=== PATIENT | female | born 1940 | race Caucasian/White ===

== ENCOUNTER → 2016-12-29 | Outpatient (CLI) | payer MEDICARE, BC ==
--- NOTE | 2016-12-29 09:40 | MM ---
Reason for exam: screening (asymptomatic). Last mammogram was performed 1 year ago. History: Patient is postmenopausal. Took estrogen for 9 years beginning at age 50. Physical Findings: A clinical breast exam by your physician is recommended on an annual basis and results should be correlated with mammographic findings. MG 3D Screening Mammo W/Cad Bilateral CC and MLO view(s) were taken. Prior study comparison: December 29, 2015, bilateral MG 3d screening mammo w/cad. December 17, 2014, bilateral MG screening mammo w CAD. There are scattered fibroglandular densities. Stable benign calcifications. There is no discrete abnormality. No significant changes when compared with prior studies. ASSESSMENT: Benign, BI-RAD 2 RECOMMENDATION: Routine screening mammogram of both breasts in 1 year.
== END | disposition home or self-care (01) ==
LOC: RADMAMWWP 07:48
PROVIDERS: ATTEND Family Medicine
DX: Z12.31 Encounter for screening mammogram for malignant neoplasm of breast (principal)
CPT/HCPCS: 77063; G0202

== ENCOUNTER 2017-04-02 21:12 | Emergency (ER) | payer MEDICARE, BC ==
[2017-04-02] MEDS ORDERED: ORPHENADRINE 30 MG/ML 2 ML VIAL IVP STA (21:41)
[2017-04-02] MEDS ORDERED: ONDANSETRON 4 MG/2 ML VIAL IVP STA (21:41)
[2017-04-02] MEDS ORDERED: MORPHINE SULFATE 2 MG/ML SYRINGE IVP ONE (21:41)
[2017-04-02 22:19] LABS: Basophils # (A) 0.1 k/uL (0-0.2); Basophils % (A) 1 %; CH 31.1; CHCM 34.9; Eosinophils % (A) 0 %; Luc % (Auto) 2; Lymphocytes # (A) 1.7 k/uL (1.0-4.8); Lymphocytes % (A) 15 %; MCH 30.6 pg (25.0-35.0); MCHC 34.2 g/dL (31.0-37.0); MCV 89.6 fL (80.0-100.0); Mean Platelet Volume 7.2; Monocytes # (A) 0.6 k/uL (0-1.0); Monocytes % (A) 5 %; Neutrophils # (A) 8.8 k/uL (1.3-7.7); Neutrophils % (A) 77 %; RBC 4.91 m/uL (3.80-5.40); RDW 14.3 % (11.5-15.5); WBC 11.4 k/uL (3.8-10.6); WBC (Perox) 11.21
[2017-04-02 22:28] LABS: Anion Gap 12 mmol/L; Blood Urea Nitrogen 18 mg/dL (7-17); Calcium 9.5 mg/dL (8.4-10.2); Carbon Dioxide 21 mmol/L (22-30); Chloride 106 mmol/L (98-107); Glucose 141 mg/dL (74-99); Non-African American GFR(MDRD) >60 (>60 ml/min/1.73 sqM); Potassium 3.5 mmol/L (3.5-5.1); Sodium 139 mmol/L (137-145)
[2017-04-02] MEDS ORDERED: HYDROmorphone 1 MG/ML 1 ML SYRINGE IVP STA (22:47)
[2017-04-02] MEDS ORDERED: DIAZEPAM 5 MG/ML 2 ML SYRINGE IVP STA (22:47)
--- NOTE | 2017-04-02 22:50 | CT ---
EXAM: CT Head Without Intravenous Contrast CLINICAL HISTORY: Reason: pain TECHNIQUE: Axial computed tomography images of the head/brain without intravenous contrast. DLP is mGy-cm. This CT exam was performed using one or more of the following dose reduction techniques: automated exposure control, adjustment of the mA and/or kV according to patient size, and/or use of iterative reconstruction technique. COMPARISON: No relevant prior studies available. FINDINGS: Brain: Periventricular white matter hypodensities, likely on the basis of chronic small vessel ischemic changes. No hemorrhage. Ventricles: Unremarkable. No ventriculomegaly. Bones/joints: Unremarkable. No acute fracture. Soft tissues: Unremarkable. Sinuses: Unremarkable as visualized. No acute sinusitis. Mastoid air cells: Unremarkable as visualized. No mastoid effusion. Other findings: Mild age-appropriate atrophy. IMPRESSION: No acute findings. Chronic small vessel ischemic changes and age- appropriate atrophy noted. EXAM: CT Cervical Spine Without Intravenous Contrast CLINICAL HISTORY: Reason: pain TECHNIQUE: Axial computed tomography images of the cervical spine without intravenous contrast. DLP is mGy-cm. This CT exam was performed using one or more of the following dose reduction techniques: automated exposure control, adjustment of the mA and/or kV according to patient size, and/or use of iterative reconstruction technique. COMPARISON: No relevant prior studies available. FINDINGS: Vertebrae: Unremarkable. No acute fracture. Discs/spinal canal/neural foramina: Degenerative disc height loss with anterior and posterior disc spur complex disease seen at C4-5 and C6-7. There is a 3 mm anterior subluxation of C5 on 6 caused by significant disc degeneration at this level. Facet arthrosis is also seen bilaterally from C4-C7. No spinal canal stenosis. Soft tissues: Unremarkable. Lung apices: Unremarkable as visualized. IMPRESSION: 1. No evidence of fracture. 2. Multilevel spondylotic changes as above including grade 1 anterior subluxation of C5 on C6.
--- NOTE | 2017-04-02 23:00 | ED ---
Neck Injury/Pain HPI - General Chief Complaint: Neck Pain/Injury Stated Complaint: Neck/Back Pain Time Seen by Provider: 04/02/17 21:34 Source: patient, RN notes reviewed Mode of arrival: ambulatory Limitations: no limitations - History of Present Illness Initial Comments: This is a 76-year-old female presents emergency Department chief complaint neck pain last few days. Patient states it started after doing some dishes. She states that she has pain that radiates on the sides of her neck into her shoulders. She states the pain is tremendously worse with movement. She denies any trauma or any falls. Denies any numbness or tingling or weakness of her upper extremities states that she does have pain when she lifts her arms above her shoulder height towards her neck and shoulder region. She denies any headache or dizziness denies any blurred vision or focal weakness. She states that she took her 's [place] with no relief. Patient states that she has not been moving her neck in all states that does not seem to be helping. She states she just feels very stiff. She denies any chest pain or shortness of breath. She states she has no upper back or lower back pain. Patient denies any prior history of any neck issues. - Related Data Previous Rx's Medication Instructions Recorded Diazepam [Valium] 5 mg PO QID #20 tab 04/02/17 HYDROcodone/APAP 7.5-325MG [[place] 1 tab PO Q6HR PRN #20 tab 04/02/17 7.5-325] Allergies Allergy/AdvReac Type Severity Reaction Status Date / Time Penicillins Allergy Rash/Hives Verified 04/02/17 21:19 Review of Systems ROS Statement: Those systems with pertinent positive or pertinent negative responses have been documented in the HPI. ROS Other: All systems not noted in ROS Statement are negative. Past Medical History Past Medical History: GERD/Reflux, Hyperlipidemia, Hypertension Additional Past Medical History / Comment(s): diverticulitis History of Any Multi-Drug Resistant Organisms: None Reported Past Surgical History: Adenoidectomy, Hysterectomy, Tonsillectomy Past Psychological History: No Psychological Hx Reported Smoking Status: Former smoker Past Alcohol Use History: None Reported Past Drug Use History: None Reported General Exam Limitations: no limitations General appearance: alert, in no apparent distress Head exam: Present: atraumatic, normocephalic, normal inspection Eye exam: Present: normal appearance, PERRL, EOMI. Absent: scleral icterus, conjunctival injection, periorbital swelling ENT exam: Present: normal exam, normal oropharynx, mucous membranes moist Neck exam: Present: normal inspection, tenderness (Diffuse paraspinal tenderness , no vertebral tenderness). Absent: meningismus, full ROM (Decreased range of motion secondary to pain), lymphadenopathy Respiratory exam: Present: normal lung sounds bilaterally. Absent: respiratory distress, wheezes, rales, rhonchi, stridor, decreased breath sounds Cardiovascular Exam: Present: regular rate, normal rhythm, normal heart sounds. Absent: systolic murmur, diastolic murmur, rubs, gallop, clicks Extremities exam: Present: normal inspection, full ROM, normal capillary refill , other (Upper extremity strength equal bilaterally 5/5, neurovascular intact there are no rashes noted patient does complain of some pain noted trapezius region when she moves her shoulders above 90). Absent: tenderness, pedal edema , joint swelling, calf tenderness Back exam: Present: normal inspection, full ROM. Absent: tenderness Neurological exam: Present: alert, oriented X3, CN II-XII intact, reflexes normal. Absent: motor sensory deficit Skin exam: Present: warm, dry, intact, normal color. Absent: rash Course Vital Signs 04/02/17 04/02/17 21:16 23:26 Temperature 98.5 F Pulse Rate 99 85 Respiratory 20 12 Rate Blood Pressure 137/79 119/62 O2 Sat by Pulse 94 L 94 L Oximetry Medical Decision Making - Medical Decision Making 76-year-old female presents emergency department for neck pain. Patient has degenerative changes and grade 1 subluxation of the cervical spine secondary to degenerative changes no acute trauma. Patient does feel slightly improved after medications. Patient will be discharged with Valium and [place] and to follow-up with Dr. Curran orthopedic next specialist. Patient does agree to this plan. Patient has no neurological deficits or weakness of her upper extremities or lower extremities's. - Lab Data Result diagrams: 04/02/17 22:10 04/02/17 22:10 Lab Results 04/02/17 04/02/17 Range/Units 22:10 22:10 WBC 11.4 H (3.8-10.6) k/uL RBC 4.91 (3.80-5.40) m/uL Hgb 15.0 (11.4-16.0) gm/dL Hct 44.0 (34.0-46.0) % MCV 89.6 (80.0-100.0) fL MCH 30.6 (25.0-35.0) pg MCHC 34.2 (31.0-37.0) g/dL RDW 14.3 (11.5-15.5) % Plt Count 247 (150-450) k/uL Neutrophils % 77 % Lymphocytes % 15 % Monocytes % 5 % Eosinophils % 0 % Basophils % 1 % Neutrophils # 8.8 H (1.3-7.7) k/uL Lymphocytes # 1.7 (1.0-4.8) k/uL Monocytes # 0.6 (0-1.0) k/uL Eosinophils # 0.0 (0-0.7) k/uL Basophils # 0.1 (0-0.2) k/uL Sodium 139 (137-145) mmol/L Potassium 3.5 (3.5-5.1) mmol/L Chloride 106 (98-107) mmol/L Carbon Dioxide 21 L (22-30) mmol/L Anion Gap 12 mmol/L BUN 18 H (7-17) mg/dL Creatinine 0.70 (0.52-1.04) mg/dL Est GFR (MDRD) Af Amer >60 (>60 ml/min/1.73 sqM) Est GFR (MDRD) Non-Af >60 (>60 ml/min/1.73 sqM) Glucose 141 H (74-99) mg/dL Calcium 9.5 (8.4-10.2) mg/dL Disposition Clinical Impression: Cervical spine degeneration, Cervical pain Disposition: HOME SELF-CARE Condition: Stable Instructions: Degenerative Disc Disease (ED) Additional Instructions: Please return to the Emergency Department if symptoms worsen or any other concerns. Prescriptions: Diazepam [Valium] 5 mg PO QID #20 tab HYDROcodone/APAP 7.5-325MG [[place] 7.5-325] 1 tab PO Q6HR PRN #20 tab PRN Reason: Pain Referrals: Elena James MD [Primary Care Provider] - 1-2 days Quin Hall DO [Doctor of Osteopathic Medicine] - 1-2 days Time of Disposition: 23:31
[2017-04-02 23:28] VITALS: PULSE 85
[2017-04-03 00:09] VITALS: BP 132/73; RESP 16; TEMP 98
== END 2017-04-03 00:08 | disposition home or self-care (01) ==
LOC: EC 21:12
DX: M50.322 Other cervical disc degeneration at C5-C6 level (principal); Z87.891 Personal history of nicotine dependence; Z88.0 Allergy status to penicillin
CPT/HCPCS: 36415; 80048; 85025; 72125; 70450; 99284; 96374; 96375 ×4; J2360; J3360; J2405; J2270; J1170

== ENCOUNTER → 2018-04-20 | Outpatient (CLI) | payer MEDICARE ==
--- NOTE | 2018-04-20 18:11 | BD ---
EXAMINATION TYPE: Axial Bone Density DATE OF EXAM: 04/20/2018 CLINICAL HISTORY: 77-year-old female screening for osteoporosis Height: 58.5 inches Weight: 146 FRAX RISK QUESTIONS: Alcohol (3 or more units per day): no Family History (Parent hip fracture): no Glucocorticoids (More than 3mos): no (Ex: prednisone, prednisolone, methylprednisolone, dexamethasone, and hydrocortisone). History of Fracture in Adulthood: no Secondary Osteoporosis: 1. Type 1 Diabetes: no 2. Hyperthyroidism: no 3. Menopause before 45: hysterectomy age 43, menopause age 44 4. Malnutrition: no 5. Chronic liver disease: no Rheumatoid Arthritis: yes Current Tobacco Use: no RISK FACTORS HISTORY OF: History of Wrist Fracture: yes When: as a child Family History of Osteoporosis: unsure Active: yes Diet low in dairy products/other sources of calcium:somewhat? servings several times a week, perhaps not every day Postmenopausal woman: yes Take estrogen and/or progesterone medications: not now How long: age [age] Lost more than 2 inches in height since high school: unsure Frequent falls: no Poor Health: no Hyperparathyroidism: no Adrenal Insufficiency: no MEDICATIONS: Prednisone or other steroids: no Thyroid Medications: no Osteoporosis Medications:no Additional Medications: cholesterol meds ; blood pressure meds Additional History: broke wrist as young child; then ankle age 15 EXAM MEASUREMENTS: Bone mineral densitometry was performed using the [employer] System. Bone mineral density as measured about the Lumbar spine is: ----- L1-L4(G/cm2): 1.214 T Score Values are as follows: ----- L2: 0.1 ----- L3: 1.3 ----- L4: 1.2 ----- L1-L4: 0.3 Bone mineral density has: Increased 3.5% since study of: 12/29/2015 Bone mineral density about the R hip (g/cm2): 0.854 Bone mineral density about the L hip (g/cm2): 0.855 T Score values are as follows: -----R Neck: -1.3 -----L Neck: -1.3 -----R Total: -0.6 -----L Total: -0.4 Bone mineral density has: Decreased -2.5% since study of: 12/29/2015 IMPRESSION: Osteopenia (T Score between -2.5 and -1). There is slightly increased risk of fracture and the patient may be considered for treatment. Re-Screen 2-5 years. NOTE: T-SCORE=SD OF THE YOUNG ADULT MEAN.
--- NOTE | 2018-04-24 09:50 | MM ---
Reason for exam: screening (asymptomatic). Last mammogram was performed 1 year and 4 months ago. History: Patient is postmenopausal. Took estrogen for 9 years beginning at age 50. Physical Findings: A clinical breast exam by your physician is recommended on an annual basis and results should be correlated with mammographic findings. MG 3D Screening Mammo W/Cad Bilateral CC and MLO view(s) were taken. Prior study comparison: December 29, 2016, bilateral MG 3d screening mammo w/cad. December 29, 2015, bilateral MG 3d screening mammo w/cad. There are scattered fibroglandular densities. No significant changes when compared with prior studies. ASSESSMENT: Benign, BI-RAD 2 RECOMMENDATION: Routine screening mammogram of both breasts in 1 year.
== END | disposition home or self-care (01) ==
LOC: RADMAMWWP 10:59
PROVIDERS: ATTEND Family Medicine
DX: Z12.31 Encounter for screening mammogram for malignant neoplasm of breast (principal); M85.80 Other specified disorders of bone density and structure, unspecified site
CPT/HCPCS: 77063; 77067; 77080

== ENCOUNTER 2018-07-23 01:55 | Emergency (ER) | payer MEDICARE ==
[2018-07-23] MEDS ORDERED: MORPHINE SULFATE 4 MG/ML SYRINGE IVP STA ×2 (02:38→04:22)
[2018-07-23] MEDS ORDERED: ONDANSETRON 4 MG/2 ML VIAL IVP STA (02:38)
--- NOTE | 2018-07-23 02:55 | ED ---
Extremity Problem HPI - General Source: patient, RN notes reviewed Mode of arrival: ambulatory Limitations: no limitations <Abdirashid Diamond - Last Filed: 07/23/18 04:29> <Audra Ceron - Last Filed: 07/27/18 00:04> - General Chief complaint: Extremity Problem,Nontraumatic Stated complaint: Hand pain Time Seen by Provider: 07/23/18 02:17 - History of Present Illness Initial comments: 77-year-old female presents emergency Department chief complaint of left wrist pain. Patient states that she had no trauma but states that she woke up severe pain. Patient is swollen. She has pain with any movement at this time. Denies any redness. She does have a history of rheumatoid arthritis. Patient states his symptoms worsened usual. She states she did take [place] prior arrival with minimal relief. Patient reports that there is some numbness and tingling associated with it. Patient denies any discoloration though she states that there appears to be swollen vessel on her left wrist region. (Abdirashid Diamond) - Related Data Previous Rx's Medication Instructions Recorded Diazepam [Valium] 5 mg PO QID #20 tab 04/02/17 HYDROcodone/APAP 7.5-325MG [[place] 1 tab PO Q6HR PRN #20 tab 04/02/17 7.5-325] HYDROcodone/APAP 7.5-325MG [[place] 1 tab PO Q6HR PRN 3 Days #12 tab 07/23/18 7.5-325] Ibuprofen [Motrin] 600 mg PO Q8HR PRN #30 tab 07/23/18 Allergies Allergy/AdvReac Type Severity Reaction Status Date / Time Penicillins Allergy Rash/Hives Verified 07/23/18 02:04 Review of Systems ROS Other: All systems not noted in ROS Statement are negative. <Abdirashid Diamond - Last Filed: 07/23/18 04:29> ROS Other: All systems not noted in ROS Statement are negative. <Audra Ceron - Last Filed: 07/27/18 00:04> ROS Statement: Those systems with pertinent positive or pertinent negative responses have been documented in the HPI. Past Medical History Past Medical History: GERD/Reflux, Hyperlipidemia, Hypertension Additional Past Medical History / Comment(s): diverticulitis History of Any Multi-Drug Resistant Organisms: None Reported Past Surgical History: Adenoidectomy, Hysterectomy, Tonsillectomy Past Psychological History: No Psychological Hx Reported Smoking Status: Former smoker Past Alcohol Use History: None Reported Past Drug Use History: None Reported <Abdirashid Diamond - Last Filed: 07/23/18 04:29> General Exam Limitations: no limitations General appearance: alert, in no apparent distress Head exam: Present: atraumatic, normocephalic, normal inspection Neck exam: Present: normal inspection, full ROM. Absent: tenderness, meningismus, lymphadenopathy Respiratory exam: Present: normal lung sounds bilaterally. Absent: respiratory distress, wheezes, rales, rhonchi, stridor Cardiovascular Exam: Present: regular rate, normal rhythm, normal heart sounds. Absent: systolic murmur, diastolic murmur, rubs, gallop, clicks Extremities exam: Present: other (Severe tenderness with palpation the left wrist, is moderate swelling, neurovascular intact with cap refill less than 2 seconds. Patient has mild pain in the midforearm, full range of motion of the left elbow) Skin exam: Present: warm, dry, intact, normal color. Absent: rash <Abdirashid Diamond - Last Filed: 07/23/18 04:29> Vital Signs 07/23/18 07/23/18 07/23/18 02:01 03:14 04:56 Temperature 98.1 F 98.8 F Pulse Rate 91 78 73 Respiratory 18 18 16 Rate Blood Pressure 132/72 113/97 119/74 O2 Sat by Pulse 96 95 98 Oximetry Medical Decision Making - Lab Data Result diagrams: 07/23/18 03:12 07/23/18 03:12 <Abdirashid Diamond - Last Filed: 07/23/18 04:29> - Lab Data Result diagrams: 07/23/18 03:12 07/23/18 03:12 <Audra Ceron - Last Filed: 07/27/18 00:04> - Medical Decision Making 77-year-old female presented for left wrist pain. Patient had lab work, x-ray. She has negative CRP, lactic acid is negative. Patient has no erythema no concerns for septic arthritis at this time. This appears just to be inflammatory. 2 arthritis. Patient has equal radial pulses and cap refill less than 2 seconds. She'll be discharged with pain medication and follow-up with orthopedics. (Abdirashid Diamond) I was available for consultation in the emergency department. The history and physical exam were done by the midlevel provider. I was consulted for this patient's care. I reviewed the case with the midlevel provider and based on their presentation of the patient, I agree with the assessment, medical decision making and plan of care as documented. (Audra Ceron) - Lab Data Lab Results 07/23/18 07/23/18 07/23/18 Range/Units 03:12 03:12 03:12 WBC 11.0 H (3.8-10.6) k/uL RBC 4.59 (3.80-5.40) m/uL Hgb 13.9 (11.4-16.0) gm/dL Hct 41.6 (34.0-46.0) % MCV 90.7 (80.0-100.0) fL MCH 30.3 (25.0-35.0) pg MCHC 33.4 (31.0-37.0) g/dL RDW 13.7 (11.5-15.5) % Plt Count 220 (150-450) k/uL Neutrophils % 73 % Lymphocytes % 17 % Monocytes % 7 % Eosinophils % 1 % Basophils % 1 % Neutrophils # 8.0 H (1.3-7.7) k/uL Lymphocytes # 1.9 (1.0-4.8) k/uL Monocytes # 0.7 (0-1.0) k/uL Eosinophils # 0.1 (0-0.7) k/uL Basophils # 0.1 (0-0.2) k/uL Manual Slide Review Performed Large Platelets Present ESR 10 (0-20) mm/hr Sodium 140 (137-145) mmol/L Potassium 4.1 (3.5-5.1) mmol/L Chloride 106 (98-107) mmol/L Carbon Dioxide 25 (22-30) mmol/L Anion Gap 9 mmol/L BUN 21 H (7-17) mg/dL Creatinine 0.78 (0.52-1.04) mg/dL Est GFR (CKD-EPI)AfAm 85 (>60 ml/min/1.73 sqM) Est GFR (CKD-EPI)NonAf 73 (>60 ml/min/1.73 sqM) Glucose 147 H (74-99) mg/dL Plasma Lactic Acid Ran 1.5 (0.7-2.0) mmol/L Uric Acid 5.8 (3.7-7.4) mg/dL Calcium 9.7 (8.4-10.2) mg/dL Total Bilirubin 0.8 (0.2-1.3) mg/dL AST 32 (14-36) U/L ALT 30 (9-52) U/L Alkaline Phosphatase 102 (38-126) U/L C-Reactive Protein 7.4 (<10.0) mg/L Total Protein 7.4 (6.3-8.2) g/dL Albumin 4.3 (3.5-5.0) g/dL Disposition Is patient prescribed a controlled substance at d/c from ED?: Yes When asked, does pt state using other controlled substances?: No If prescribed controlled substance>3 days was MAPS reviewed?: Prescribed <3 Days If opioid is for acute pain is fill amount 7 days or less?: Yes If Rx opioid, was Start Talking consent form obtained?: Yes Time of Disposition: 04:31 <Abdirashid Diamond M - Last Filed: 07/23/18 04:29> <Audra Ceron P - Last Filed: 07/27/18 00:04> Clinical Impression: Left wrist pain, Arthritis of left wrist Disposition: HOME SELF-CARE Condition: Stable Instructions: Osteoarthritis (ED) Additional Instructions: Please return to the Emergency Department if symptoms worsen or any other concerns. Prescriptions: HYDROcodone/APAP 7.5-325MG [[place] 7.5-325] 1 tab PO Q6HR PRN 3 Days #12 tab PRN Reason: Pain Ibuprofen [Motrin] 600 mg PO Q8HR PRN #30 tab PRN Reason: Pain Referrals: Elena Jamse MD [Primary Care Provider] - 1-2 days Abdon Quintana DO [Doctor of Osteopathic Medicine] - 1-2 days
--- NOTE | 2018-07-23 03:05 | XR ---
EXAMINATION TYPE: XR wrist complete LT DATE OF EXAM: 07/23/2018 COMPARISON: 05/02/2010 HISTORY: Pain TECHNIQUE: 4 views FINDINGS: There is moderate osteoarthritis at the first carpometacarpal joint. The radiocarpal joint is intact. I see no fracture nor dislocation. Metacarpals appear intact. There is soft tissue swellin g on the dorsum of the wrist. IMPRESSION: Soft tissue swelling. No acute fracture seen. There is some mild subluxation deformity of the first carpometacarpal joint unchanged. Significant osteoarthritis at the first carpometacarpal j oint.
[2018-07-23 03:29] LABS: Basophils # (A) 0.1 k/uL (0-0.2); Basophils % (A) 1 %; Eosinophils # (A) 0.1 k/uL (0-0.7); Eosinophils % (A) 1 %; HCT 41.6 % (34.0-46.0); HGB 13.9 gm/dL (11.4-16.0); Lymphocytes # (A) 1.9 k/uL (1.0-4.8); Lymphocytes % (A) 17 %; MCH 30.3 pg (25.0-35.0); MCHC 33.4 g/dL (31.0-37.0); MCV 90.7 fL (80.0-100.0); Mean Platelet Volume 6.9; Monocytes # (A) 0.7 k/uL (0-1.0); Monocytes % (A) 7 %; Neutrophils % (A) 73 %; Platelet Count 220 k/uL (150-450); RBC 4.59 m/uL (3.80-5.40); RDW 13.7 % (11.5-15.5)
[2018-07-23 03:44] LABS: Albumin 4.3 g/dL (3.5-5.0); C Reactive Protein 7.4 mg/L (<10.0); Calcium 9.7 mg/dL (8.4-10.2); Potassium 4.1 mmol/L (3.5-5.1); Total Bilirubin 0.8 mg/dL (0.2-1.3); Total Protein 7.4 g/dL (6.3-8.2); Uric Acid 5.8 mg/dL (3.7-7.4)
[2018-07-23 04:17] LABS: Large Platelets Present
[2018-07-23] MEDS ORDERED: HYDROmorphone 1 MG/ML 1 ML SYRINGE IVP STA (04:28)
[2018-07-23] MEDS ORDERED: KETOROLAC 30 MG/ML 1 ML VIAL IVP STA (04:28)
[2018-07-23 04:57] VITALS: BP 119/74; PULSE 73; RESP 16; TEMP 98.8
[2018-07-23 05:21] LABS: Erythrocyte Sedimentation Rate 10 mm/hr (0-20)
== END 2018-07-23 04:57 | disposition home or self-care (01) ==
LOC: EC 01:55
DX: M19.032 Primary osteoarthritis, left wrist (principal); Z88.0 Allergy status to penicillin; Z87.891 Personal history of nicotine dependence
CPT/HCPCS: 36415; 80053; 85652; 83605; 84550; 85025; 86140; 73110; 99283; 96374; 96375 ×3; J2270; J2405; J1885; J1170

== ENCOUNTER → 2019-05-25 | Outpatient (CLI) | payer MEDICARE ==
--- NOTE | 2019-05-28 13:54 | MM ---
Reason for exam: screening (asymptomatic). Last mammogram was performed 1 year and 1 month ago. History: Patient is postmenopausal. Took estrogen for 9 years beginning at age 50. Physical Findings: A clinical breast exam by your physician is recommended on an annual basis and results should be correlated with mammographic findings. MG 3D Screening Mammo W/Cad Bilateral CC and MLO view(s) were taken. Prior study comparison: April 20, 2018, bilateral MG 3d screening mammo w/cad. December 29, 2016, bilateral MG 3d screening mammo w/cad. The breast tissue is almost entirely fat. Stable round dermal calcifications on the left. No significant changes when compared with prior studies. ASSESSMENT: Negative, BI-RAD 1 RECOMMENDATION: Routine screening mammogram of both breasts in 1 year.
== END | disposition home or self-care (01) ==
LOC: RADMAMWWP 14:43
PROVIDERS: ATTEND Family Medicine
DX: Z12.31 Encounter for screening mammogram for malignant neoplasm of breast (principal)
CPT/HCPCS: 77063; 77067

== ENCOUNTER 2020-11-03 12:38 | Emergency (ER) | payer MEDICARE ==
[2020-11-03 12:44] VITALS: BP 138/80; PULSE 87; RESP 17; TEMP 98.2
--- NOTE | 2020-11-03 13:01 | XR ---
EXAMINATION TYPE: XR Hip Complete RT DATE OF EXAM: 11/03/2020 CLINICAL HISTORY: Pain since fall injury one to 2 weeks ago. TECHNIQUE: AP and frogleg views of the right hip are obtained. COMPARISON: None. FINDINGS: There is no acute fracture/dislocation evident in the right hip. Moderate to advanced axia l and superior joint space loss with joint space sclerosis. Femoral head shape maintained. There is r ight lower pelvic surgical clip noted. IMPRESSION: As above.
[2020-11-03] MEDS ORDERED: methylPREDNISolone SOD SUCCI 125 MG/2 ML VIAL IM ONE (14:05)
--- NOTE | 2020-11-03 14:05 | ED ---
Extremity Problem HPI - General Chief complaint: Extremity Problem,Nontraumatic Stated complaint: Hip pain Source: patient Mode of arrival: ambulatory Limitations: no limitations - History of Present Illness Initial comments: 1-year-old female who presents emergency department from her primary care office for x-ray. Patient reports that she has had right hip pain for the past several days. Patient denies any injury. States the pain radiates from her right hip into the anterior portion of her thigh. Denies any lower back pain. No bowel or bladder incontinence. No saddle anesthesia. She denies any fevers or chills. No knee or ankle pain. Primary care doctor did place her on [place] and requested that she come to the ER for an x-ray. No other alleviating, precipita ting or modifying factors - Related Data Home Medications Medication Instructions Recorded Confirmed Brimonidine Tartrate [Alphagan P 1 drops BOTH EYES BID 11/03/20 11/03/20 0.2% Ophth Soln] Celecoxib [CeleBREX] 200 mg PO DAILY 11/03/20 11/03/20 Latanoprost/Pf [Latanoprost 0.005% 1 drop BOTH EYES DAILY 11/03/20 11/03/20 Eye Drop] Losartan [Cozaar] 50 mg PO DAILY 11/03/20 11/03/20 Omeprazole 20 mg PO DAILY 11/03/20 11/03/20 Simvastatin 40 mg PO HS 11/03/20 11/03/20 hydroCHLOROthiazide [Hydrodiuril] 12.5 mg PO DAILY 11/03/20 11/03/20 traMADol HCL 50 mg PO Q6HR PRN 11/03/20 11/03/20 Allergies Allergy/AdvReac Type Severity Reaction Status Date / Time Penicillins Allergy Rash/Hives Verified 11/03/20 14:16 Review of Systems ROS Statement: Those systems with pertinent positive or pertinent negative responses have been documented in the HPI. ROS Other: All systems not noted in ROS Statement are negative. Past Medical History Past Medical History: GERD/Reflux, Hyperlipidemia, Hypertension, Osteoarthritis (OA) Additional Past Medical History / Comment(s): diverticulitis History of Any Multi-Drug Resistant Organisms: None Reported Past Surgical History: Adenoidectomy, Hysterectomy, Tonsillectomy Past Psychological History: No Psychological Hx Reported Smoking Status: Former smoker Past Alcohol Use History: Rare Past Drug Use History: None Reported General Exam Limitations: no limitations Course Vital Signs 11/03/20 12:40 Temperature 98.2 F Pulse Rate 87 Respiratory 17 Rate Blood Pressure 138/80 O2 Sat by Pulse 95 Oximetry Medical Decision Making - Medical Decision Making The patient is placed into hallway 20. A thorough history and physical exam was performed. Patient is neurovascularly intact. X-ray is reviewed which demonstrates no acute fracture dislocation. Moderate to advanced axial and superior joint space loss with joint space sclerosis. Femoral had she maintained. The situation is discussed with the patient. She has artery received a prescription for Forsyth from her primary care physician with his called the pharmacy. Patient additionally on Celebrex for lower extremity arthritis. At this time the patient is to take the Celebrex and Forsyth as directed. I will give her a Solu-Medrol shot. Patient has an appointment with Dr. Mrena Flood upcoming. She is to call and see if they have any sooner appointments. Follow up with her primary care doctor to 4 days. Return to the emergency room for any new or worsening symptoms per patient is discharged home in stable condition Disposition Clinical Impression: Right hip pain, Arthritis Disposition: HOME SELF-CARE Condition: Stable Instructions (If sedation given, give patient instructions): Hip Pain (ED) Additional Instructions: Please follow up with the orthopedic office for further evaluation. You can call to see if you have any quicker appointments. Take the Celebrex and Forsyth as directed. Return to the ED for any new or worsening symptoms. Is patient prescribed a controlled substance at d/c from ED?: No Referrals: Elena James MD [Primary Care Provider] - 1-2 days Abdon Quintana DO [Doctor of Osteopathic Medicine] - 1-2 days Time of Disposition: 14:09
== END 2020-11-03 14:38 | disposition home or self-care (01) ==
LOC: EC 12:38
DX: M16.11 Unilateral primary osteoarthritis, right hip (principal); K21.9 Gastro-esophageal reflux disease without esophagitis; I10 Essential (primary) hypertension; E78.5 Hyperlipidemia, unspecified; Z79.899 Other long term (current) drug therapy; Z88.0 Allergy status to penicillin; Z87.891 Personal history of nicotine dependence
CPT/HCPCS: 73502; 99283; 96372; J2930

== ENCOUNTER → 2020-11-17 | Outpatient (CLI) | payer MEDICARE ==
--- NOTE | 2020-11-17 15:43 | BD ---
EXAMINATION TYPE: Axial Bone Density DATE OF EXAM: 11/17/2020 COMPARISON: NONE CLINICAL HISTORY: Height: 59 Weight: 143.9 FRAX RISK QUESTIONS: Alcohol (3 or more units per day): no Family History (Parent hip fracture): yes Glucocorticoids (More than 3mos): no (Ex: prednisone, prednisolone, methylprednisolone, dexamethasone, and hydrocortisone). History of Fracture in Adulthood: no Secondary Osteoporosis: 1. Type 1 Diabetes: no 2. Hyperthyroidism: no 3. Menopause before 45: no 4. Malnutrition: no 5. Chronic liver disease: no Rheumatoid Arthritis: yes Current Tobacco Use: no RISK FACTORS HISTORY OF: History of Wrist Fracture: right wrist When: as a child Surgery to Spine/Hip(right/left)/Wrist (right/left): no Family History of Osteoporosis: yes Active: sometimes Diet low in dairy products/other sources of calcium: yes Postmenopausal woman: age 44 Lost more than 2 inches in height since high school: yes MEDICATIONS: scanned into pacs Additional History: EXAM MEASUREMENTS: Bone mineral densitometry was performed using the [email or web address] System. Bone mineral density as measured about the Lumbar spine is: ----- L1-L4(G/cm2): 1.216 T Score Values are as follows: ----- L2: -0.3 ----- L3: 1.5 ----- L4: 0.7 ----- L1-L4: 0.3 Bone mineral density has: decreased -0.7 % since study of: Bone mineral density about the R hip (g/cm2): 0.852 Bone mineral density about the L hip (g/cm2): 0.828 T Score values are as follows: -----R Neck: -1.3 -----L Neck: -1.5 -----R Total: -1.0 -----L Total: -0.2 Bone mineral density has: decreased -1.6 % since study of: 04.20.2018 IMPRESSION: No evidence for osteoporosis or osteopenia. NOTE: T-SCORE=SD OF THE YOUNG ADULT MEAN.
--- NOTE | 2020-11-18 09:43 | MM ---
Reason for exam: screening (asymptomatic). Last mammogram was performed 1 year and 6 months ago. History: Patient is postmenopausal. Took estrogen for 9 years beginning at age 50. Physical Findings: A clinical breast exam by your physician is recommended on an annual basis and results should be correlated with mammographic findings. MG 3D Screening Mammo W/Cad Bilateral CC and MLO view(s) were taken. Prior study comparison: May 25, 2019, bilateral MG 3d screening mammo w/cad. April 20, 2018, bilateral MG 3d screening mammo w/cad. There are scattered fibroglandular densities. Stable benign calcifications. There is no discrete abnormality. No significant changes when compared with prior studies. ASSESSMENT: Benign, BI-RAD 2 RECOMMENDATION: Routine screening mammogram of both breasts in 1 year.
== END | disposition home or self-care (01) ==
LOC: RADMAMWWP 14:38
PROVIDERS: ATTEND Family Medicine
DX: Z12.31 Encounter for screening mammogram for malignant neoplasm of breast (principal); R92.8 Other abnormal and inconclusive findings on diagnostic imaging of breast; R92.1 Mammographic calcification found on diagnostic imaging of breast; Z78.0 Asymptomatic menopausal state
CPT/HCPCS: 77063; 77067; 77080

== ENCOUNTER → 2021-01-02 | Outpatient (CLI) | payer MEDICARE | END | disposition home or self-care (01) | LOC: LABPAT 09:13 | PROVIDERS: ATTEND Orthopaedic Surgery | DX: Z01.812 Encounter for preprocedural laboratory examination (principal); M16.11 Unilateral primary osteoarthritis, right hip | CPT/HCPCS: 87070 ==

== ENCOUNTER 2021-01-12 10:26 | Observation (INO) | payer MEDICARE ==
[2021-01-06 15:35] VITALS: BMI 26.0
--- NOTE | 2021-01-11 11:48 | HP ---
HISTORY AND PHYSICAL DATE OF SURGERY: 01/12/2021 Lindsey Guy is an 80-year-old patient seen with symptomatic right hip osteoarthritis. We discussed options for treatment. She elected to proceed with direct anterior right total hip arthroplasty. Consent was obtained. Medical clearance was provided by Dr. Elena James. PAST MEDICAL HISTORY: Hyperlipidemia, gastroesophageal reflux disease, hypertension. PAST SURGICAL HISTORY: Appendectomy, hysterectomy, tonsillectomy. MEDICATIONS: Hydrochlorothiazide, losartan, omeprazole, simvastatin. ALLERGIES: PENICILLIN. SOCIAL HISTORY: She denies tobacco use. PHYSICAL EXAMINATION: Evaluation of the right hip: She has limited range of motion with severe pain. Positive impingement sign. Straight leg raise negative. Diffuse tenderness about the hip girdle. The right lower extremity is about 0.5 inch shorter than the left. Her distal neurovascular exam is intact. RADIOGRAPHS: Radiographs of the right hip revealed severe osteoarthritic changes. IMPRESSION: 1. Right hip osteoarthritis. 2. Hypertension. 3. Hyperlipidemia. 4. Gastroesophageal reflux disease. PLAN: Direct anterior right total hip arthroplasty. MMODL / IJN: [id number] /
[~2021-01-12 10:26] MED LIST: ACETAMINOPHEN TAB 500 MG TAB PO PRN; DEXAMETHASONE SOD PHOSPHATE 4 MG/ML 1 ML VIAL IV ONE; HYDROmorphone 0.5 MG/0.5 ML SYRINGE IVP PRN; MELOXICAM 7.5 MG TAB PO PRN; ONDANSETRON 4 MG/2 ML VIAL IVP ONE; ROPIVACAINE/EPI/CLONIDINE/KET 50 ML SYRINGE MISCELLANE PRN; TRANEXAMIC ACID 1,000 MG in SODIUM CHLORIDE 0.9% 100 ML IVPB PRN
[2021-01-12] MEDS: LACTATED RINGERS 1,000 ML IV SCH (11:14)
[2021-01-12] MEDS ORDERED: LIDOCAINE 1% (10MG/ML) FOR IV START INTRADERMA ONE (11:18)
[2021-01-12] MEDS ORDERED: GLYCOPYRROLATE 0.2 MG/ML 2 ML VIAL ONE (12:37)
[2021-01-12] MEDS ORDERED: ePHEDrine SULFATE/0.9% NACL/PF 50 MG/5 ML SYRINGE IV ONE (12:37)
[2021-01-12] MEDS ORDERED: fentaNYL (PF) 50 MCG/ML 2 ML AMP ONE (12:37)
[2021-01-12] MEDS ORDERED: TRANEXAMIC ACID 1,000 MG/10 ML VIAL ONE (12:37)
[2021-01-12] MEDS ORDERED: SODIUM CHLORIDE 0.9% 100 ML BAG ONE (12:37)
[2021-01-12] MEDS ORDERED: PROPOFOL 10 MG/ML 20 ML VIAL IV ONE (12:37)
[2021-01-12] MEDS ORDERED: MIDAZOLAM 2 MG/2 ML VIAL ONE (12:37)
[2021-01-12] MEDS ORDERED: PHENYLEPHRINE-0.9% NACL SYG 1,000 MCG/10 ML SYRINGE ONE (12:37)
[2021-01-12] MEDS ORDERED: ceFAZolin 1,000 MG in SODIUM CHLORIDE 0.9% 1,000 ML IRRIGATION ONE (13:13)
[2021-01-12] MEDS ORDERED: HYDROcodone/APAP 5-325MG 1 EACH TAB PO PRN (14:16)
[2021-01-12] MEDS ORDERED: NALOXONE 0.4 MG/ML 1 ML VIAL IV PRN (14:16)
[2021-01-12] MEDS ORDERED: ONDANSETRON 4 MG/2 ML VIAL IVP PRN (14:16)
[2021-01-12] MEDS ORDERED: HYDROmorphone 0.2 MG/1 ML SYRINGE IVP PRN (14:16)
[2021-01-12] MEDS ORDERED: HYDROmorphone 0.5 MG/0.5 ML SYRINGE IVP PRN (14:16)
--- NOTE | 2021-01-12 14:16 | P.OP ---
Date of Procedure: 01/12/21 Preoperative Diagnosis: Right hip osteoarthritis Postoperative Diagnosis: Right hip osteoarthritis Procedure(s) Performed: Direct anterior right total hip arthroplasty Implants: 1. Depuy Corail size 10 standard collar press-fit femoral stem 2. Depuy pinnacle 52 mm multilhole press-fit acetabular shell 3. Depuy pinnacle neutral polyethylene acetabular liner 36 mm ID 50 mm OD 4. Biolox delta ceramic femoral head +5 36 mm Anesthesia: local, spinal Surgeon: Abdon Quintana Gravity Meter Operator #1: Armand Willis Estimated Blood Loss (ml): 200 Pathology: other (Femoral head) Condition: stable Disposition: PACU Indications for Procedure: 80-year-old patient seen with symptomatic right hip osteoarthritis. After treatment options were discussed, she elected to proceed with total hip arthroplasty. Consent was obtained. Operative Findings: See description of procedure Description of Procedure: The patient was taken to the operative suite. Patient underwent a spinal anest hetic by the department of anesthesia. Patient was then transferred to the [place] table. Patient was given preoperative IV antibiotics and TXA. Both lower extremities were placed in standard leg spars. The hip was then prepped and draped in the normal sterile orthopedic fashion. A standard anterior incision was made beginning 3 cm lateral and 1 cm distal to the ASIS extending 10 cm. Dissection was then carried down through the subcutaneous soft tissues down to the fascia overlying the tensor fascia kelly. An incision was now made through the fascia. Careful dissection was taken down exposing the tensor fascia kelly muscle. A Cobra retractor was now placed along the medial femoral neck and a second one along the lateral femoral neck. The venous circumflex vessels were now identified, cauterized and clipped. We identified the anterior hip capsule. An incision was made through the hip capsule along the lateral border. I performed a partial anterior capsulectomy. Retractors were now placed around the femoral neck itself. A femoral neck cut was now made with a sagittal saw. It was completed with an osteotome at the lateral neck area. The femoral head was now removed without difficulty. The extremity was now rotated to 45 of external rotation. It was locked in position. Residual labrum was now debrided out. Serial reaming was performed of the acetabulum while Brent MARTE assisted holding an anterior retractor for exposure. Once we reached the appropriate size and a trial was position and fit nicely. The appropriate size was now chosen opened and made available. It was introduced into the acetabulum without difficulty. The C-arm/fluoroscopy was now brought into the operative field. We made sure we had a true AP pelvic view. We now under direct C-arm/ fluoroscopy introduced into the acetabular component with appropriate version and inclination. I held the cup in appropriate position well Brent MARTE used a mallet to seat the acetabular component. I noted the component now to be well seated and stable. Acetabular cup introduce her was removed. The C-arm was pulled back. An appropriate liner was introduced and clicked into position. It was felt to be stable. At this point retractors were removed. The extremity was now placed into 130 external rotation with no traction. The leg was now dropped to the ground and adducted. Appropriate retractors were now positioned along the proximal femur. We also placed our femoral look into position. Additional capsular releasing was performed to gain access to the proximal femur. We now used a box osteotome. A canal finder was now utilized. Serial broaching was now performed with the assistance of Brent MARTE tapping the broaches down with a mallet while held the broach in appropriate rotation and position. This was done until we reached the appropriate size with good overall rotational stability. Appropriate calcar planing was performed. A trial head/neck was placed into position. The hip was now reduced. The C- arm/fluoroscopy was brought back into the operative field. I obtained an AP pelvis demonstrating adequate ligaments alignment. The trial components appea red well positioned. The C-arm/fluoroscopy was pulled back. Retractors were repositioned and the hip was dislocated. The leg was again taken down to the ground and adducted. Appropriate retractors were repositioned as well as the femoral hook. All trial components were removed. The femoral implant was opened along with the femoral head. The femoral implant was introduced on the appropriate handle into our pre-broached area. I held the component position while Brent MARTE used a mallet to seat the femoral component. The femoral component was now noted to be well seated and stable.. The femoral head was introduced with good positioning and fixation noted. Retractors were now removed. The hip was now reduced. There appeared be good positioning of the hip confirmed on intraoperative fluoroscopy. Spot films were obtained to document this. A second gram of TXA was given. The deep and superficial soft tissues were infiltrated with local analgesic. Bipolar cautery had been utilized intermittently through the procedure for hemostasis. The wound was irrigated copiously with pulse lavage mechanical irrigation. The fascia was repaired with Vicryl suture. The subcutaneous soft tissues were repaired in layers with Vicryl suture. The skin was approximated with pernio/Dermabond. Sterile dressings were applied. Patient was then awakened, transferred to a bed and taken to recovery in stable condition. Brent MARET assisted with the complex procedure.
--- NOTE | 2021-01-12 15:06 | XR ---
EXAMINATION TYPE: XR Hip Limited RT, FL guidance operating room DATE OF EXAM: 01/12/2021 COMPARISON: 11/03/2020 HISTORY: Right anterior hip TECHNIQUE: 2 fluoroscopic spot images of the right hip were submitted for review. 11 seconds fluorosc opy. FINDINGS: Right hip hardware is incompletely visualized. For full details please see the operative report. IMPRESSION: Right hip hardware is incompletely visualized. For full details please see the operative report.
--- NOTE | 2021-01-12 20:18 | P.CONS ---
History of Present Illness - Reason for Consult Consult date: 01/12/21 - History of Present Illness Lindsey Guy, is an 80-year-old female admitted to [facility] by Dr. Quintana due to pain and movement limitation in the right hip that failed outpatient conservative management, patient underwent right total hip arthroplasty on 01/12/2021 medical consultation was requested for management while hospitalized. Patient has a known history of hypertension, hyperlipidemia, gastroesophageal reflux disease, osteoarthritis, and history of diverticulosis with one episode of acute diverticulitis in the past she denies any history of coronary artery disease or congestive heart failure she denies any history of asthma or COPD she used to smoke but quit 30 years ago. Past surgical history is significant for tonsillectomy, history of appendectomy, and history of hysterectomy, she denies any other surgical intervention in the past. On review of systems patient is complaining of pain in the right hip area otherwise she denies any complaints there is no fever or chills no headache or dizziness no chest pain no shortness of breath no cough no nausea or vomiting no abdominal pain no diarrhea no blood in the stools no burning with urination no frequency or urgency and no hematuria Past Medical History Past Medical History: GERD/Reflux, Hyperlipidemia, Hypertension, Osteoarthritis (OA) Additional Past Medical History / Comment(s): diverticulitis in past History of Any Multi-Drug Resistant Organisms: None Reported Past Surgical History: Adenoidectomy, Hysterectomy, Tonsillectomy Additional Past Surgical History / Comment(s): colonoscopy Past Anesthesia/Blood Transfusion Reactions: No Reported Reaction Smoking Status: Former smoker - Past Family History Mother Family Medical History: No Reported History Medications and Allergies Home Medications Medication Instructions Recorded Confirmed Type Brimonidine Tartrate [Alphagan P 1 drops BOTH EYES BID 11/03/20 01/06/21 History 0.2% Ophth Soln] Celecoxib [CeleBREX] 200 mg PO DAILY 11/03/20 01/06/21 History Latanoprost/Pf [Latanoprost 0.005% 1 drop BOTH EYES DAILY 11/03/20 01/06/21 History Eye Drop] Losartan [Cozaar] 50 mg PO DAILY 11/03/20 01/06/21 History Omeprazole 20 mg PO DAILY 11/03/20 01/06/21 History Simvastatin 20 mg PO HS 11/03/20 01/12/21 History hydroCHLOROthiazide [Hydrodiuril] 12.5 mg PO DAILY 11/03/20 01/12/21 History Calcium Carbonate/Vitamin D3 1 each PO DAILY 01/06/21 01/12/21 History [Calcium 600 mg-D3 20 mcg (800 unit)] HYDROcodone/APAP 10-325MG [[place] 1 tab PO Q6HR PRN 01/06/21 01/12/21 History 10-325] Allergies Allergy/AdvReac Type Severity Reaction Status Date / Time Penicillins Allergy Rash/Hives Verified 01/06/21 14:58 Physical Exam Vitals: Vital Signs Temp Pulse Pulse Resp BP BP Pulse Ox 01/12/21 17:42 82 107/63 01/12/21 17:13 84 109/82 93 L 01/12/21 16:41 76 100/59 96 01/12/21 16:25 76 106/63 95 01/12/21 16:10 79 105/66 94 L 01/12/21 15:56 82 102/62 97 01/12/21 15:45 97.8 F 83 16 113/60 96 01/12/21 15:20 84 16 100/56 99 01/12/21 15:05 84 16 103/53 98 01/12/21 14:50 87 16 106/59 97 01/12/21 14:34 97.3 F L 96 16 108/55 99 01/12/21 10:59 99.0 F 75 16 125/63 97 Intake and Output 01/12/21 01/12/21 01/12/21 06:59 14:59 22:59 Intake Total 951 150 Output Total 200 Balance 751 150 Intake: IV 951 150 Output: Estimated Blood Loss 200 Other: # Voids 2 Weight 61.9 kg In general patient is alert and oriented x 3 in no distress HEENT head normocephalic and atraumatic Neck is supple no JVD no goiter no lymphadenopathy no carotid bruit Chest examination is clear to auscultation no crackles no wheezing Cardiac exam reveals regular heart sounds S1 and S2 no gallops no murmurs Abdomen is soft nontender no organomegaly with normal bowel sounds Extremity exam reveals no edema no cyanosis or clubbing Neurological examination reveals no gross focal deficits Assessment and Plan Plan: Right hip osteoarthritis status post right total hip arthroplasty today Underlying history of hypertension Underlying history of hyperlipidemia Underlying history of gastroesophageal reflux disease Home medications reviewed and 3 ordered Check labs in a.m. For DVT prophylaxis patient is currently on subcu Lovenox For GI prophylaxis patient is on omeprazole Will follow during this admission for medical management
[2021-01-12] MEDS ORDERED: ATORVASTATIN 10 MG TAB PO SCH (21:00)
[2021-01-12] MEDS ORDERED: SENNOSIDES-DOCUSATE SODIUM 1 EACH TAB PO SCH (21:00)
[2021-01-12] MEDS: BRIMONIDINE TARTRATE 0.2% DROPS 5 ML BTL BOTH EYES SCH (21:02)
[2021-01-13] MEDS: HYDROmorphone 0.5 MG/0.5 ML SYRINGE IVP PRN ×2 (01:02→08:09)
[2021-01-13] MEDS: HYDROcodone/APAP 5-325MG 1 EACH TAB PO PRN ×2 (04:26→10:59)
[2021-01-13] MEDS: LACTATED RINGERS 1,000 ML IV SCH (05:11)
[2021-01-13] MEDS ORDERED: PANTOPRAZOLE 40 MG TABLET PO SCH (07:30)
[2021-01-13 07:55] VITALS: BP 119/71; PULSE 81; TEMP 97.9
[2021-01-13] MEDS: BRIMONIDINE TARTRATE 0.2% DROPS 5 ML BTL BOTH EYES SCH (08:10)
[2021-01-13] MEDS ORDERED: CALCIUM CARB-VIT D 500 MG-5 MCG TAB PO SCH (09:00)
[2021-01-13] MEDS ORDERED: LOSARTAN 50 MG TAB PO SCH (09:00)
[2021-01-13] MEDS ORDERED: CELECOXIB 200 MG PO SCH (09:00)
[2021-01-13] MEDS ORDERED: hydroCHLOROthiazide 12.5 MG CAP PO SCH (09:00)
[2021-01-13] MEDS ORDERED: MELOXICAM 7.5 MG TAB PO SCH (09:00)
[2021-01-13] MEDS ORDERED: LATANOPROST 0.005% OPHTH DROPS 2.5 ML BTL BOTH EYES SCH (09:00)
[2021-01-13] MEDS ORDERED: ENOXAPARIN 40 MG/0.4 ML SYRINGE SQ SCH (09:00)
[2021-01-13 09:18] LABS: Basophils # (A) 0.02 X 10*3/uL (0.00-0.10); Basophils % (A) 0.1 %; Eosinophils # (A) 0 X 10*3/uL (0.04-0.35); Eosinophils % (A) 0 %; HCT 28.1 % (37.2-46.3); HGB 8.9 g/dL (12.0-15.0); Lymphocytes # (A) 1.15 X 10*3/uL (0.90-5.00); Lymphocytes % (A) 8.1 %; MCH 28.3 pg (27.0-32.0); MCHC 31.7 g/dL (32.0-37.0); MCV 89.2 fL (80.0-97.0); Mean Platelet Volume 10.2 fL (9.5-12.2); Monocytes # (A) 1.08 X 10*3/uL (0.20-1.00); Monocytes % (A) 7.6 %; Neutrophils # (A) 11.87 X 10*3/uL (1.80-7.70); Neutrophils % (A) 83.8 %; Platelet Count 200 X 10*3/uL (140-440); RBC 3.15 X 10*6/uL (4.10-5.20); RDW 15.5 % (11.5-14.5); WBC 14.18 X 10*3/uL (4.50-10.00)
--- NOTE | 2021-01-13 10:41 | P.PN ---
Subjective Progress Note Date: 01/13/21 Principal diagnosis: Status post direct anterior right total hip arthroplasty Patient evaluated at bedside, she is resting comfortably. She's ambulated well with therapy. She is having some discomfort in the thigh region. She denies any headaches, lightheadedness, chest pain or shortness of breath. Objective - Vital Signs Vital signs: Vital Signs Temp 97.9 F 01/13/21 07:54 Pulse 81 01/13/21 07:54 Resp 18 01/13/21 07:54 BP 119/71 01/13/21 07:54 Pulse Ox 94 L 01/13/21 07:54 Intake & Output 01/12/21 01/13/21 01/13/21 18:59 06:59 18:59 Intake Total 1101 290 Output Total 200 Balance 901 290 Weight 61.9 kg Intake: IV 1101 Intake, IV Titration 290 Amount Lactated Ringers 1,000 ml 240 @ 20 mls/hr IV .Q24H CORTEZ Rx#:[id number] ceFAZolin 2 gm In Sodium 50 Chloride 0.9% 50 ml @ 100 mls/hr IVPB Q8H CORTEZ Rx#: [id number] Output: Estimated Blood Loss 200 Other: # Voids 2 2 - Exam Right lower extremity: Incision is clean, dry, and intact. The foam tape is in good condition. There is minimal soft tissue swelling and ecchymosis surrounding the medial and lateral aspects of the incision. Calf is soft, no tenderness with palpation. Plantar flexion, dorsiflexion, EHL, FHL are intact. Sensory exam to light touch throughout the extremity is intact, dorsal pedis pulses 2+. - Labs CBC & Chem 7: 01/13/21 06:21 Labs: Abnormal Lab Results - Last 24 Hours (Table) 01/13/21 Range/Units 06:21 WBC 14.18 H (4.50-10.00) X 10*3/uL RBC 3.15 L (4.10-5.20) X 10*6/uL Hgb 8.9 L (12.0-15.0) g/dL Hct 28.1 L (37.2-46.3) % MCHC 31.7 L (32.0-37.0) g/dL RDW 15.5 H (11.5-14.5) % Immature Gran # 0.06 H (0.00-0.04) X 10*3/uL Neutrophils # 11.87 H (1.80-7.70) X 10*3/uL Monocytes # 1.08 H (0.20-1.00) X 10*3/uL Eosinophils # 0 L (0.04-0.35) X 10*3/uL Assessment and Plan Assessment: Postoperative day 1 status post her anterior right total hip arthroplasty Plan: Pain control, plan for discharge home on oral medication GI and DVT prophylaxis, aspirin 81 mg twice a day Wound care instructions discussed Medical recommendations Home physical therapy and nursing after discharge Plan discharge home today Time with Patient: Less than 30
--- NOTE | 2021-01-13 10:50 | P.DS ---
Providers Date of admission: 01/13/21 09:53 Expected date of discharge: 01/13/21 Attending physician: Abdon Quintana Consults: 01/12/21 14:16 Consult Physician Routine Consulting Provider: Zulay Tariq Consult Reason/Comments: Medical management Do you want consulting provider notified?: Yes Primary care physician: Elena James Hospital Course: Date of admission: 01/12/2021 Date of discharge: 01/13/2021 Admission diagnosis: Status post direct anterior right total hip arthroplasty Discharge diagnosis: Same Attending physician: Dr. Quintana Surgical procedures: Direct anterior right total hip arthroplasty Brief history: Patient is a 80-year-old female with a history of progressive primary right hip osteoarthritis. At this point patient has failed conservative treatment measures and has opted to proceed with a elective direct anterior right total hip arthroplasty. Hospital course: Details of patient's surgery can be found in operative report. Patient tolerated the procedure well and was subsequently transported to orthopedic floor. Patient's orthopeidc and medical care was provided daily. Patient had daily laboratory tests performed for evaluation of overall blood counts. Patient had daily physical therapy to include strengthening range of motion as well as education with walker ambulation. Patient was treated with Lovenox for their postoperative DVT prophylaxis during their inpatient stay. Patient was noted to have a relatively uneventful postoperative course. Patient reported satisfactory pain control with oral pain medications by postoperative day 0. Patient showed satisfactory progress with physical therapy. Patient moved steadily through the program and had no difficulty meeting the goals by postoperative day 1. Given patient's otherwise satisfactory course and having met physical therapy goals, plan is to discharge patient home on postoperative day 1. Discharge condition/disposition: Patient will be discharged home in stable condition. Discharge medications: Instructions are given on resumption of patient's normal daily medications per primary care recommendation, in addition patient will be prescribed Moodus 10 mg/325 mg, Colace 100 mg, aspirin 81 mg. Discharge instructions: 1. Wound care and infection precautions, keep incision dry and covered while showering, no lotions, creams, moisturizers. No soaking, tubs, pools, hottubs. Do not scrub over the incision. 2. Weight-bear as tolerated with walker / cane until follow-up. 3. Ice and elevate when necessary. Do not exceed 20 minutes per hour with ice pack. 4. Utilize compression sleeve until seen at first follow up appointment. 5. Visiting nursing care. 6. Home physical therapy. 7. Pain meds and anticoagulants per prescription. 8. Pain medication has potential to cause constipation. Increase oral fluid and fiber intake. Contact primary care provider if you have not had a bowel movement within 48 hours after discharge 9. No anti-inflammatory medication until discussed at first post operative visit, this including Motrin, Aleve, Mobic, Diclofenac. 10. Follow up in office at 2 weeks postop with Brent Willis PA-C/Rikki Hauser 11. Follow up with your primary care doctor 7-10 days after discharge. 12. Contact [facility] with any questions, . Procedures: Direct anterior total hip arthroplasty Patient Condition at Discharge: Good Plan - Discharge Summary Discharge Rx Participant: Yes New Discharge Prescriptions: New Aspirin [Adult Low Dose Aspirin EC] 81 mg PO BID #60 tablet.dr Santamaria [Colace] 100 mg PO DAILY #30 capsule HYDROcodone/APAP 10-325MG [Moodus 10-325] 1 tab PO Q6HR PRN 3 Days #28 tab PRN Reason: Pain No Action Simvastatin 20 mg PO HS Celecoxib [CeleBREX] 200 mg PO DAILY Latanoprost/Pf [Latanoprost 0.005% Eye Drop] 1 drop BOTH EYES DAILY HYDROcodone/APAP 10-325MG [Moodus 10-325] 1 tab PO Q6HR PRN PRN Reason: Pain Calcium Carbonate/Vitamin D3 [Calcium 600 mg-D3 20 mcg (800 unit)] 1 each PO DAILY Omeprazole 20 mg PO DAILY hydroCHLOROthiazide [Hydrodiuril] 12.5 mg PO DAILY Losartan [Cozaar] 50 mg PO DAILY Brimonidine Tartrate [Alphagan P 0.2% Ophth Soln] 1 drops BOTH EYES BID Discharge Medication List Brimonidine Tartrate [Alphagan P 0.2% Ophth Soln] 1 drops BOTH EYES BID 11/03/20 [History] Celecoxib [CeleBREX] 200 mg PO DAILY 11/03/20 [History] Latanoprost/Pf [Latanoprost 0.005% Eye Drop] 1 drop BOTH EYES DAILY 11/03/20 [History] Losartan [Cozaar] 50 mg PO DAILY 11/03/20 [History] Omeprazole 20 mg PO DAILY 11/03/20 [History] Simvastatin 20 mg PO HS 11/03/20 [History] hydroCHLOROthiazide [Hydrodiuril] 12.5 mg PO DAILY 11/03/20 [History] Calcium Carbonate/Vitamin D3 [Calcium 600 mg-D3 20 mcg (800 unit)] 1 each PO DAILY 01/06/21 [History] HYDROcodone/APAP 10-325MG [Moodus 10-325] 1 tab PO Q6HR PRN 01/06/21 [History] Aspirin [Adult Low Dose Aspirin EC] 81 mg PO BID #60 tablet. 01/13/21 [Rx] Docusate [Colace] 100 mg PO DAILY #30 capsule 01/13/21 [Rx] HYDROcodone/APAP 10-325MG [Moodus 10-325] 1 tab PO Q6HR PRN 3 Days #28 tab 01/13/21 [Rx] Follow up Appointment(s)/Referral(s): Armand Willis, EMMANUEL [PHYSICIAN SENIOR SERVICE TECHNICIAN] - 2 Weeks Activity/Diet/Wound Care/Special Instructions: Orthopedic Discharge Instructions: 1. Wound care and infection precautions, keep incision dry and covered while showering, no lotions, creams, moisturizers. No soaking, pools, hot tubs. Do not scrub over incision. 2. Weight-bear as tolerated with walker / cane until follow-up. 3. Ice and elevate when necessary. Do not exceed 20 minutes per hour with ice pack. 4. Utilize compression sleeve until seen at first follow up appointment. 5. Pain meds and anticoagulants per prescription. 6. Pain medication has potential to cause constipation. Increase oral fluid and fiber intake. Contact primary care provider if you have not had a bowel movement within 48 hours after discharge. 7. No anti-inflammatory medication until discussed at first post operative visit, this including Motrin, Aleve, Mobic, Diclofenac. 8. Follow up in office at 2 weeks postop with Brent Willis PA-C/Rikki Velasquez PA-C 9. Follow up with your primary care doctor 7-10 days after discharge. 10. Contact [facility] with any questions, . Wound care: Okay to remove foam dressing on 01/19/2021, keep incision covered and dry until then Discharge Disposition: HOME WITH HOME HEALTH SERVICES
[2021-01-13 11:15] VITALS: RESP 16
[2021-01-13 14:05] LABS: African American GFR (CKD) 49.1 (60.0-200.0); Albumin 3.6 g/dL (3.80-4.90); Anion Gap 9.6 mmol/L (4.00-12.00); BUN/Creat Ratio 24.17 Ratio (12.00-20.00); Calcium 8.6 mg/dL (8.7-10.3); Carbon Dioxide 23.4 mmol/L (21.6-31.8); Globulin 1.8 g/dL (1.6-3.3); Non-African American GFR(CKD) 42.3 (60.0-200.0); Potassium 3.9 mmol/L (3.5-5.5); Total Bilirubin 0.3 mg/dL (0.2-1.2); Total Protein 5.4 g/dL (6.2-8.2)
== END 2021-01-13 12:18 | disposition home health service (06) ==
LOC: OR 10:26 → 4SSUR 15:28 → OR 01-13 09:53 → 4SSUR 01-13 09:53
PROVIDERS: ADMIT Orthopaedic Surgery; ATTEND Orthopaedic Surgery
DX: M16.11 Unilateral primary osteoarthritis, right hip (principal); E78.5 Hyperlipidemia, unspecified; I10 Essential (primary) hypertension; R73.02 Impaired glucose tolerance (oral); K21.9 Gastro-esophageal reflux disease without esophagitis; M19.90 Unspecified osteoarthritis, unspecified site; Z90.710 Acquired absence of both cervix and uterus; Z87.19 Personal history of other diseases of the digestive system; Z87.891 Personal history of nicotine dependence; Z79.899 Other long term (current) drug therapy; Z79.1 Long term (current) use of non-steroidal anti-inflammatories (NSAID); Z90.49 Acquired absence of other specified parts of digestive tract; Z88.0 Allergy status to penicillin
CPT/HCPCS: 27130; 97161; 80053; 85025; 88300; 73501; G0378; C1776; J2250; J1100; J0690 ×3; J2405; J1650; J3010; J2370; J2704; J1170 ×2; 36415; 86850; 86900; 86901

== ENCOUNTER → 2021-12-24 | Outpatient (CLI) | payer MEDICARE ==
--- NOTE | 2021-12-25 15:17 | MM ---
Reason for Exam: Screening (asymptomatic). Last mammogram was performed 1 year(s) and 2 month(s) ago. Patient History: Menarche at age 12. First Full-Term at age 19. Right ovary removed at age 43. Hysterectomy at age 43. Postmenopausal. Estrogen for 9 years from age 50 until age 61. Risk Values: Kajal 5 year model risk: 1.4%. NCI Lifetime model risk: 1.9%. Prior Study Comparison: 04/20/2018 Bilateral Screening Mammogram, [facility]. 05/25/2019 Bilateral Screening Mammogram, [facility]. 11/17/2020 Bilateral Screening Mammogram, [facility]. Tissue Density: There are scattered fibroglandular densities. Findings: Analyzed By CAD. Benign vascular calcifications present. No suspicious spiculated or lobulated mass, clustered microcalcifications, architectural distortion or secondary signs see radiographically apparent. Overall Assessment: Benign, BI-RAD 2 Management: Screening Mammogram of both breasts in 1 year. A clinical breast exam by your physician is recommended on an annual basis and results should be correlated with mammographic findings. Electronically signed and approved by: Ernesto Turpin D.O. Radiologis
== END | disposition home or self-care (01) ==
LOC: RADMAMWWP 13:00
PROVIDERS: ATTEND Family Medicine
DX: Z12.31 Encounter for screening mammogram for malignant neoplasm of breast (principal); Z78.0 Asymptomatic menopausal state
CPT/HCPCS: 77063; 77067

== ENCOUNTER 2023-07-02 21:04 | Emergency (ER) | payer MEDICARE ==
[2023-07-02 21:17] VITALS: TEMP 99
--- NOTE | 2023-07-02 21:53 | ED ---
Abdominal Pain HPI - General Source: patient Mode of arrival: ambulatory Limitations: no limitations <Sushma Pompa - Last Filed: 07/02/23 21:52> - History of Present Illness MD Complaint: abdominal pain Onset/Timin -: days(s) Location: diffuse Radiation: none Migration to: no migration Severity: mild Quality: dull Consistency: constant Improves With: nothing Worsens With: nothing Associated Symptoms: other (Darker urine) <Shun Araiza - Last Filed: 07/12/23 05:22> - General Chief Complaint: Abdominal Pain Stated Complaint: Abd/Back pain Time Seen by Provider: 07/02/23 21:53 - History of Present Illness Initial Comments: Patient is an 82-year-old female presented ER with generalized abdominal pain. Patient states it really radiates up to her neck. Patient denies any fevers, chills, night sweats. (Sushma Pompa) This patient is an 82-year-old woman who presents to have evaluation for not feeling well. She states she does have some abdominal discomfort. She indicates the entire abdomen. She states that she does not have much of an appetite. She has not noted change in bowel movements. No vomiting. She states she may be urinating less and it may be stronger. (Shun Araiza) - Related Data Home Medications Medication Instructions Recorded Confirmed Brimonidine Tartrate [Alphagan P 1 drops BOTH EYES BID 11/03/20 01/06/21 0.2% Ophth Soln] Celecoxib [CeleBREX] 200 mg PO DAILY 11/03/20 01/06/21 Latanoprost/Pf [Latanoprost 0.005% 1 drop BOTH EYES DAILY 11/03/20 01/06/21 Eye Drop] Losartan [Cozaar] 50 mg PO DAILY 11/03/20 01/06/21 Omeprazole 20 mg PO DAILY 11/03/20 01/06/21 Simvastatin 20 mg PO HS 11/03/20 01/12/21 hydroCHLOROthiazide [Hydrodiuril] 12.5 mg PO DAILY 11/03/20 01/12/21 Calcium Carbonate/Vitamin D3 1 each PO DAILY 01/06/21 01/12/21 [Calcium 600 mg-D3 20 mcg (800 unit)] HYDROcodone/APAP 10-325MG [Salida 1 tab PO Q6HR PRN 01/06/21 01/12/21 10-325] Previous Rx's Medication Instructions Recorded Aspirin [Adult Low Dose Aspirin EC] 81 mg PO BID #60 tablet. 01/13/21 Docusate [Colace] 100 mg PO DAILY #30 capsule 01/13/21 HYDROcodone/APAP 10-325MG [[place]ida 1 tab PO Q6HR PRN 3 Days #28 tab 01/13/21 10-325] Nirmatrelvir/Ritonavir [Paxlovid 1 each PO BID #10 each 07/03/23 150-100 mg Pack (Eua)] Nirmatrelvir/Ritonavir [Paxlovid 1 each PO ONCE #1 pack 07/03/23 2X150 mg-100 mg (Eua)] Sulfamethox-Tmp 800-160Mg [Bactrim 1 each PO Q12HR #6 tab 07/03/23 Ds] Allergies Allergy/AdvReac Type Severity Reaction Status Date / Time Penicillins Allergy Rash/Hives Verified 07/02/23 21:12 Review of Systems ROS Other: All systems not noted in ROS Statement are negative. <Sushma Pompa - Last Filed: 07/02/23 21:52> ROS Other: All systems not noted in ROS Statement are negative. Constitutional: Reports: weakness. Denies: fever, chills Respiratory: Denies: cough, dyspnea Cardiovascular: Denies: chest pain, palpitations, edema Endocrine: Reports: fatigue Gastrointestinal: Reports: abdominal pain. Denies: nausea, vomiting, diarrhea, constipation Genitourinary: Reports: other (Darker urine). Denies: dysuria, frequency Musculoskeletal: Denies: back pain Skin: Denies: rash Neurological: Denies: headache, weakness <Shun Araiza - Last Filed: 07/12/23 05:22> ROS Statement: Those systems with pertinent positive or pertinent negative responses have been documented in the HPI. Past Medical History Past Medical History: GERD/Reflux, Hyperlipidemia, Hypertension, Osteoarthritis (OA) Additional Past Medical History / Comment(s): diverticulitis History of Any Multi-Drug Resistant Organisms: None Reported Past Surgical History: Adenoidectomy, Hysterectomy, Tonsillectomy Additional Past Surgical History / Comment(s): colonoscopy Past Anesthesia/Blood Transfusion Reactions: No Reported Reaction Past Psychological History: No Psychological Hx Reported Smoking Status: Former smoker Past Alcohol Use History: None Reported Past Drug Use History: None Reported - Past Family History Mother Family Medical History: No Reported History <Sushma Pompa - Last Filed: 07/02/23 21:52> General Exam Limitations: no limitations <Sushma Pompa - Last Filed: 07/02/23 21:52> General appearance: alert, in no apparent distress Head exam: Present: atraumatic, normocephalic Eye exam: Present: normal appearance. Absent: scleral icterus, conjunctival injection ENT exam: Present: mucous membranes dry Neck exam: Present: normal inspection Respiratory exam: Present: normal lung sounds bilaterally. Absent: respiratory distress, wheezes, rales, rhonchi, stridor Cardiovascular Exam: Present: regular rate, normal rhythm, normal heart sounds. Absent: systolic murmur, diastolic murmur, rubs, gallop GI/Abdominal exam: Present: soft. Absent: distended, tenderness, guarding, rebound, rigid, mass Extremities exam: Present: normal inspection, normal capillary refill. Absent: pedal edema, calf tenderness Back exam: Present: normal inspection. Absent: CVA tenderness (R), CVA tenderness (L) Neurological exam: Present: alert Skin exam: Present: warm, dry, intact, normal color. Absent: rash <Shun Araiza - Last Filed: 07/12/23 05:22> - General Exam Comments Initial Comments: Visual Physical Exam Vital signs reviewed General: Well-appearing, nontoxic, no acute distress. Head: Normocephalic, atraumatic Eyes: PERRLA, EOMI ENT: Airway patent Chest: Nonlabored breathing Skin: No visual rash, normal skin tone Neuro: Alert and oriented 3 Musculoskeletal: No gross abnormalities (Sushma Pompa) Course Vital Signs 07/02/23 07/03/23 21:08 00:56 Temperature 99 F Pulse Rate 82 67 Respiratory 18 16 Rate Blood Pressure 107/78 118/77 O2 Sat by Pulse 92 L 95 Oximetry Medical Decision Making <Sushma Pompa - Last Filed: 07/02/23 21:52> - Lab Data Result diagrams: 07/02/23 22:23 07/02/23 22:23 <Shun Araiza - Last Filed: 07/12/23 05:22> - Medical Decision Making I performed the quick note portion of the exam. Electronically signed by Sushma Pompa PA-C (Sushma Pompa) The patient had chest x-ray which I interpreted as negative for acute infiltrate, pneumothorax, congestive heart failure Patient is an 82-year-old woman who presents to have evaluation for not feeling well in general and having abdominal discomfort. The workup does reveal positive covid test. There does also appear to be urinary tract infection. The patient started on antibiotic coverage here and will like to go home. We discussed appropriate further care and follow-up as well as return parameters Was pt. sent in by a medical professional or institution (, ESTUARDO, ORNAMENTAL METAL ERECTOR, urgent care, hospital, or jail...) When possible be specific @ -[No] Did you speak to anyone other than the patient for history (EMS, parent, family, police, friend...)? What history was obtained from this source @ -[No] Did you review nursing and triage notes (agree or disagree)? Why? @ -[I reviewed and agree with nursing and triage notes] Were old charts reviewed (outside hosp., previous admission, EMS record, old EKG, old radiological studies, urgent care reports/EKG's, jail records)? Report findings @ -[No old charts were reviewed] Differential Diagnosis (chest pain, altered mental status, abdominal pain women, abdominal pain men, vaginal bleeding, weakness, fever, dyspnea, syncope, headache, dizziness, GI bleed, back pain, seizure, CVA, palpatations, mental health, musculoskeletal)? @ -[Differential Abdominal Pain Women: Appendicitis, Cholecystitis, diverticulosis, ischemic bowel, pancreatitis, hepatitis, UTI, gastroenteritis, AAA, incarcerated hernia, bowel obstruction, constipation, inflammatory bowel, hepatitis, peptic ulcer disease, splenic infarction, perforated viscus, vulvitis, ovarian torsion, PID, kidney stone, placenta abruption, this is not meant to be an all-inclusive list EKG interpreted by me (3pts min.). @ -[As above] X-rays interpreted by me (1pt min.). @ -[I interpreted as above CT interpreted by me (1pt min.). @ -[None done] U/S interpreted by me (1pt. min.). @ -[None done] What testing was considered but not performed or refused? (CT, X-rays, U/S, labs)? Why? @ -[None] What meds were considered but not given or refused? Why? @ -[None] Did you discuss the management of the patient with other professionals (professionals i.e. , PA, ORNAMENTAL METAL ERECTOR, lab, RT, psych nurse, oncology social work, beaver trapper, teacher, parachute officer, case picker)? Give summary @ -[No] Was smoking cessation discussed for >3mins.? @ -[No] Was critical care preformed (if so, how long)? @ -[No] Were there social determinants of health that impacted care today? How? (Homelessness, low income, unemployed, alcoholism, drug addiction, transportation, low edu. Level, literacy, decrease access to med. care, fci, rehab)? @ -[No] Was there de-escalation of care discussed even if they declined (Discuss DNR or withdrawal of care, Hospice)? DNR status @ -[No] What co-morbidities impacted this encounter? (DM, HTN, Smoking, COPD, CAD, Cancer, CVA, ARF, Chemo, Hep., AIDS, mental health diagnosis, sleep apnea, morbid obesity)? @ -[None] Was patient admitted / discharged? Hospital course, mention meds given and route, prescriptions, significant lab abnormalities, going to OR and other pertinent info. @ -[As above Undiagnosed new problem with uncertain prognosis? @ -[No] Drug Therapy requiring intensive monitoring for toxicity (Heparin, Nitro, Insulin, Cardizem)? @ -[No] Were any procedures done? @ -[No] Diagnosis/symptom? @ -[Acute Covid 19 infection Acute urinary tract infection Acute, or Chronic, or Acute on Chronic? @ -[Acute Uncomplicated (without systemic symptoms) or Complicated (systemic symptoms)? @ -[Uncomplicated Side effects of treatment? @ -[No] Exacerbation, Progression, or Severe Exacerbation? @ -[No] Poses a threat to life or bodily function? How? (Chest pain, USA, IA, pneumonia, PE, COPD, DKA, ARF, appy, cholecystitis, CVA, Diverticulitis, Homicidal, Suicidal, threat to staff... and all critical care pts) @ -[No] (Shun Araiza) - Lab Data Lab Results 07/02/23 07/02/23 07/02/23 Range/Units 21:15 21:15 22:23 WBC 5.4 (3.8-10.6) k/uL RBC 4.63 (3.80-5.40) m/uL Hgb 13.5 (11.4-16.0) gm/dL Hct 41.9 (34.0-46.0) % MCV 90.4 (80.0-100.0) fL MCH 29.1 (25.0-35.0) pg MCHC 32.2 (31.0-37.0) g/dL RDW 15.4 (11.5-15.5) % Plt Count 156 (150-450) k/uL MPV 7.6 Neutrophils % 64 % Lymphocytes % 21 % Monocytes % 11 % Eosinophils % 0 % Basophils % 1 % Neutrophils # 3.4 (1.3-7.7) k/uL Lymphocytes # 1.1 (1.0-4.8) k/uL Monocytes # 0.6 (0-1.0) k/uL Eosinophils # 0.0 (0-0.7) k/uL Basophils # 0.0 (0-0.2) k/uL Sodium (137-145) mmol/L Potassium (3.5-5.1) mmol/L Chloride (98-107) mmol/L Carbon Dioxide (22-30) mmol/L Anion Gap mmol/L BUN (7-17) mg/dL Creatinine (0.52-1.04) mg/dL Est GFR (CKD-EPI)AfAm (>60 ml/min/1.73 sqM) Est GFR (CKD-EPI)NonAf (>60 ml/min/1.73 sqM) Glucose (74-99) mg/dL Calcium (8.4-10.2) mg/dL Total Bilirubin (0.2-1.3) mg/dL AST (14-36) U/L ALT (4-34) U/L Alkaline Phosphatase (38-126) U/L Troponin I (0.000-0.034) ng/mL Total Protein (6.3-8.2) g/dL Albumin (3.5-5.0) g/dL Amylase (30-110) U/L Lipase (23-300) U/L Urine Color Yellow Urine Appearance Slightly Cloudy H (Clear) Urine pH 5.0 (5.0-8.0) Ur Specific Pep 1.025 (1.001-1.035) Urine Protein Negative (Negative) Urine Glucose (UA) Negative (Negative) Urine Ketones Trace H (Negative) Urine Blood Negative (Negative) Urine Nitrite Negative (Negative) Urine Bilirubin Negative (Negative) Urine Urobilinogen <2.0 (<2.0) mg/dL Ur Leukocyte Esterase Moderate H (Negative) Urine RBC 1 (0-5) /hpf Urine WBC 84 H (0-5) /hpf Ur Squamous Epith Cells 12 H (0-4) /hpf Urine Bacteria Moderate H (None) /hpf Hyaline Casts 37 H (0-2) /lpf Urine Mucus Few H (None) /hpf Influenza Type A (PCR) Not Detected (Not Detectd) Influenza Type B (PCR) Not Detected (Not Detectd) RSV (PCR) Not Detected (Not Detectd) SARS-CoV-2 (PCR) Detected A (Not Detectd) 07/02/23 07/02/23 Range/Units 22:23 22:23 WBC (3.8-10.6) k/uL RBC (3.80-5.40) m/uL Hgb (11.4-16.0) gm/dL Hct (34.0-46.0) % MCV (80.0-100.0) fL MCH (25.0-35.0) pg MCHC (31.0-37.0) g/dL RDW (11.5-15.5) % Plt Count (150-450) k/uL MPV Neutrophils % % Lymphocytes % % Monocytes % % Eosinophils % % Basophils % % Neutrophils # (1.3-7.7) k/uL Lymphocytes # (1.0-4.8) k/uL Monocytes # (0-1.0) k/uL Eosinophils # (0-0.7) k/uL Basophils # (0-0.2) k/uL Sodium 138 (137-145) mmol/L Potassium 3.8 (3.5-5.1) mmol/L Chloride 103 (98-107) mmol/L Carbon Dioxide 22 (22-30) mmol/L Anion Gap 13 mmol/L BUN 30 H (7-17) mg/dL Creatinine 0.98 (0.52-1.04) mg/dL Est GFR (CKD-EPI)AfAm 62 (>60 ml/min/1.73 sqM) Est GFR (CKD-EPI)NonAf 54 (>60 ml/min/1.73 sqM) Glucose 108 H (74-99) mg/dL Calcium 9.1 (8.4-10.2) mg/dL Total Bilirubin 0.4 (0.2-1.3) mg/dL AST 68 H (14-36) U/L ALT 40 H (4-34) U/L Alkaline Phosphatase 72 (38-126) U/L Troponin I <0.012 (0.000-0.034) ng/mL Total Protein 7.3 (6.3-8.2) g/dL Albumin 4.3 (3.5-5.0) g/dL Amylase 79 (30-110) U/L Lipase 222 (23-300) U/L Urine Color Urine Appearance (Clear) Urine pH (5.0-8.0) Ur Specific Pep (1.001-1.035) Urine Protein (Negative) Urine Glucose (UA) (Negative) Urine Ketones (Negative) Urine Blood (Negative) Urine Nitrite (Negative) Urine Bilirubin (Negative) Urine Urobilinogen (<2.0) mg/dL Ur Leukocyte Esterase (Negative) Urine RBC (0-5) /hpf Urine WBC (0-5) /hpf Ur Squamous Epith Cells (0-4) /hpf Urine Bacteria (None) /hpf Hyaline Casts (0-2) /lpf Urine Mucus (None) /hpf Influenza Type A (PCR) (Not Detectd) Influenza Type B (PCR) (Not Detectd) RSV (PCR) (Not Detectd) SARS-CoV-2 (PCR) (Not Detectd) Disposition <Sushma Pompa - Last Filed: 07/02/23 21:52> Is patient prescribed a controlled substance at d/c from ED?: No <Shun Araiza - Last Filed: 07/12/23 05:22> Clinical Impression: COVID-19, Urinary tract infection Disposition: HOME SELF-CARE Condition: Good Instructions (If sedation given, give patient instructions): Urinary Tract Infection in Women (ED), COVID-19 (Coronavirus Disease 2019) (ED) Prescriptions: Sulfamethox-Tmp 800-160Mg [Bactrim Ds] 1 each PO Q12HR #6 tab Nirmatrelvir/Ritonavir [Paxlovid 150-100 mg Pack (Eua)] 1 each PO BID #10 each Nirmatrelvir/Ritonavir [Paxlovid 2X150 mg-100 mg (Eua)] 1 each PO ONCE #1 pack Referrals: Elena James MD [Primary Care Provider] - 1-2 days
[2023-07-02 22:34] LABS: Bacteria,Urine Moderate /hpf; Hyaline Casts,Urine 37 /lpf (0-2); Mucus,Urine Few /hpf; RBC,Urine 1 /hpf (0-5); Squamous Epithelial Cell,Urine 12 /hpf (0-4); WBC,Urine 84 /hpf (0-5)
[2023-07-02 22:43] LABS: Appearance,Urine Slightly Cloudy (Clear); Color,Urine Yellow; Protein,Urine Negative (Negative); Specific Gravity,Urine 1.025 (1.001-1.035)
[2023-07-02 22:44] LABS: Bilirubin,Urine Negative (Negative); Blood,Urine Negative (Negative); Glucose,Urine (UA) Negative (Negative); Ketones,Urine Trace (Negative); Leukocyte Esterase,Urine Moderate (Negative); Nitrite,Urine Negative (Negative); Urobilinogen,Urine <2.0 mg/dL (<2.0)
[2023-07-02 23:50] LABS: ALT 40 U/L (4-34); AST 68 U/L (14-36); African American GFR (CKD) 62 (>60 ml/min/1.73 sqM); Albumin 4.3 g/dL (3.5-5.0); Alkaline Phosphatase 72 U/L (38-126); Amylase 79 U/L (30-110); Anion Gap 13 mmol/L; Blood Urea Nitrogen 30 mg/dL (7-17); Calcium 9.1 mg/dL (8.4-10.2); Carbon Dioxide 22 mmol/L (22-30); Chloride 103 mmol/L (98-107); Glucose 108 mg/dL (74-99); Lipase 222 U/L (23-300); Non-African American GFR(CKD) 54 (>60 ml/min/1.73 sqM); Sodium 138 mmol/L (137-145); Total Bilirubin 0.4 mg/dL (0.2-1.3); Total Protein 7.3 g/dL (6.3-8.2)
[2023-07-02 23:52] LABS: Basophils % (A) 1 %; Eosinophils % (A) 0 %; HCT 41.9 % (34.0-46.0); HGB 13.5 gm/dL (11.4-16.0); Lymphocytes # (A) 1.1 k/uL (1.0-4.8); Lymphocytes % (A) 21 %; MCH 29.1 pg (25.0-35.0); MCHC 32.2 g/dL (31.0-37.0); MCV 90.4 fL (80.0-100.0); Mean Platelet Volume 7.6; Monocytes # (A) 0.6 k/uL (0-1.0); Monocytes % (A) 11 %; Neutrophils # (A) 3.4 k/uL (1.3-7.7); Neutrophils % (A) 64 %; Platelet Count 156 k/uL (150-450); RBC 4.63 m/uL (3.80-5.40); RDW 15.4 % (11.5-15.5); WBC 5.4 k/uL (3.8-10.6)
[2023-07-02 23:53] LABS: Potassium 3.8 mmol/L (3.5-5.1)
--- NOTE | 2023-07-03 00:38 | XR ---
EXAMINATION TYPE: XR chest 2V DATE OF EXAM: 07/02/2023 9:25 PM CLINICAL INDICATION:Female, 82 years old with history of cough; [facility] COMPARISON: None TECHNIQUE: XR chest 2V. Frontal PA and lateral views of the chest. FINDINGS: Lines/Tubes: None. Heart/mediastinum: Cardiomediastinal silhouette is well defined. Heart size is normal. Mildly tortu ous partially calcified aorta. Pulmonary vascularity: Not increased, Lungs/Pleura: There is no evidence of pleural effusion, focal consolidation, or pneumothorax. Musculoskeletal: No acute osseous abnormality demonstrated in the limits of the exam. Mild degenerat mynor changes of the spine and shoulders. Other findings: None. IMPRESSION: No acute cardiopulmonary abnormality.
[2023-07-03 01:12] VITALS: BP 118/77; PULSE 67; RESP 16
== END 2023-07-03 01:11 | disposition home or self-care (01) ==
LOC: EC 21:04
DX: U07.1 COVID-19 (principal); N39.0 Urinary tract infection, site not specified; I10 Essential (primary) hypertension; E78.5 Hyperlipidemia, unspecified; K21.9 Gastro-esophageal reflux disease without esophagitis; M19.90 Unspecified osteoarthritis, unspecified site; Z79.899 Other long term (current) drug therapy; Z88.0 Allergy status to penicillin; Z87.891 Personal history of nicotine dependence
CPT/HCPCS: 36415; 80053; 82150; 83690; 84484; 85025; 81001; 87636; 71046; 99284; 96365; J0696

== ENCOUNTER 2024-11-08 11:01 | Emergency (ER) | payer MEDICARE, OTHER ==
--- NOTE | 2024-11-08 11:26 | ED ---
Extremity Problem HPI - General Chief complaint: Extremity Problem,Nontraumatic Stated complaint: R arm pain Time Seen by Provider: 11/08/24 11:12 Source: patient, RN notes reviewed Mode of arrival: ambulatory Limitations: no limitations - History of Present Illness Initial comments: This is an 84-year-old female who presents to the emergency department for right arm pain. States that yesterday around 2 AM she was getting ready for bed and noticed that her right arm was aching. She had not injured it and had struggled to fall asleep, as the pain kept waking her up. The pain has since persisted. States that it is much worse if she tries to move the arm or reaches to pick something up. States that it seems to go from her shoulder down to her hand. At this point the lower arm and hand are more painful than the shoulder is. Denies any pain in her chest or shortness of breath. MD Complaint: extremity pain - Related Data Home Medications Medication Instructions Recorded Confirmed Brimonidine Tartrate [Alphagan P 1 drops BOTH EYES BID 11/03/20 01/06/21 0.2% Oph Soln] Celecoxib [CeleBREX] 200 mg PO DAILY 11/03/20 01/06/21 Latanoprost/Pf [Latanoprost 0.005% 1 drop BOTH EYES DAILY 11/03/20 01/06/21 Eye Drop] Losartan [Cozaar] 50 mg PO DAILY 11/03/20 01/06/21 Omeprazole 20 mg PO DAILY 11/03/20 01/06/21 Simvastatin 20 mg PO HS 11/03/20 01/12/21 hydroCHLOROthiazide [Hydrodiuril] 12.5 mg PO DAILY 11/03/20 01/12/21 Calcium Carbonate/Vitamin D3 1 each PO DAILY 01/06/21 01/12/21 [Calcium 600 mg-D3 20 mcg (800 unit)] HYDROcodone/APAP 10-325MG [[place] 1 tab PO Q6HR PRN 01/06/21 01/12/21 10-325] Previous Rx's Medication Instructions Recorded Aspirin [Adult Low Dose Aspirin EC] 81 mg PO BID #60 tablet. 01/13/21 Docusate [Colace] 100 mg PO DAILY #30 capsule 01/13/21 HYDROcodone/APAP 10-325MG [[place] 1 tab PO Q6HR PRN 3 Days #28 tab 01/13/21 10-325] Nirmatrelvir/Ritonavir [Paxlovid 1 each PO BID #10 each 07/03/23 150-100 mg Pack (Eua)] Nirmatrelvir/Ritonavir [Paxlovid 1 each PO ONCE #1 pack 07/03/23 2X150 mg-100 mg (Eua)] Sulfamethox-Tmp 800-160Mg [Bactrim 1 each PO Q12HR #6 tab 07/03/23 Ds] Meloxicam [Mobic] 15 mg PO DAILY PRN #20 tab 11/08/24 Allergies Allergy/AdvReac Type Severity Reaction Status Date / Time Penicillins Allergy Rash/Hives Verified 07/02/23 21:12 Review of Systems ROS Statement: Those systems with pertinent positive or pertinent negative responses have been documented in the HPI. ROS Other: All systems not noted in ROS Statement are negative. Past Medical History Past Medical History: Dementia, GERD/Reflux, Hyperlipidemia, Hypertension, Osteoarthritis (OA) Additional Past Medical History / Comment(s): diverticulitis, alzhiemer History of Any Multi-Drug Resistant Organisms: None Reported Past Surgical History: Adenoidectomy, Hysterectomy, Tonsillectomy Additional Past Surgical History / Comment(s): colonoscopy Past Anesthesia/Blood Transfusion Reactions: No Reported Reaction Past Psychological History: No Psychological Hx Reported Smoking Status: Former smoker Past Alcohol Use History: None Reported Past Drug Use History: None Reported - Past Family History Mother Family Medical History: No Reported History General Exam Limitations: no limitations General appearance: alert, in no apparent distress Head exam: Present: atraumatic, normocephalic, normal inspection Respiratory exam: Present: normal lung sounds bilaterally. Absent: respiratory distress, wheezes, rales, rhonchi, stridor Cardiovascular Exam: Present: regular rate, normal rhythm Extremities exam: Present: other (No deformities, swelling, or erythema to the right upper extremity. No localized tenderness. Range of motion induces pain. 2+ radial pulses) Psychiatric exam: Present: normal affect, normal mood Skin exam: Present: warm, dry, intact, normal color. Absent: rash Course Vital Signs 11/08/24 11/08/24 11:07 12:58 Temperature 97.8 F 97.9 F Pulse Rate 82 75 Respiratory 20 19 Rate Blood Pressure 167/94 147/93 O2 Sat by Pulse 98 95 Oximetry Medical Decision Making - Medical Decision Making This is an 84 year old female who presents to the emergency department for right arm pain. Was pt. sent in by a medical professional or institution? @ -No Did you speak to anyone other than the patient for history? @ -No Did you review nursing and triage notes? @ -Yes, and I agree, it is accurate with regards to the patient's symptoms. Were old charts reviewed? @ -No Differential Diagnosis? @ -Differential Musculoskeletal Muscular strain, contusion, ligament sprain, fracture, arthritis, septic arthritis, bursitis, cellulitis, muscle spasm, nerve compression, DVT, arterial occlusion, herpes zoster, electrolyte abnormality, tumor.... This is not meant to be in all inclusive list EKG interpreted by me (3pts min.)? @ -EKG interpreted by me demonstrating the following: Sinus rhythm. Ventricular rate 74 bpm, UT interval 149 ms, QRS duration 93 ms, QTc 409 ms. X-rays interpreted by me (1pt min.)? @ -X-ray of the right humerus, forearm, and hand obtained. My interpretation identifies no acute fractures. CT interpreted by me (1pt min.)? @ -Not obtained U/S interpreted by me (1pt. min.)? @ -Duplex ultrasound of the right upper extremity obtained. My interpretation identifies no evidence of a DVT. What testing was considered but not performed? (CT, X-rays, U/S, labs)? Why? @ -None What meds were considered but not given? Why? @ -None Did you discuss the management of the patient with other professionals? @ -No Did you reconcile home meds? @ -No Was smoking cessation discussed for >3mins.? @ -No Was critical care preformed (if so, how long)? @ -No Were there social determinants of health that impacted care today? How? (Homelessness, low income, unemployed, alcoholism, drug addiction, transportation, low edu. Level, literacy, decrease access to med. care, skilled nursing, rehab)? @ -No Was there de-escalation of care discussed even if they declined? (Discuss DNR or withdrawal of care, Hospice)? @ -No What co-morbidities impacted this encounter? (DM, HTN, Smoking, COPD, CAD, Cancer, CVA, Hep., AIDS, mental health diagnosis, sleep apnea, morbid obesity)? @ -Osteoarthritis Was patient admitted / discharged? @ -Discharged. X-ray of the right humerus, forearm, and hand obtained revealing no acute process. She does have osteoarthritic changes. Duplex ultrasound of the right upper extremity obtained as well revealing no evidence of a DVT. Patient declined any pain medication in the emergency department. Symptoms likely musculoskeletal in nature. Prescription for meloxicam provided with dosing instructions reviewed. She does also have [place] she can take at home if needed. Information for follow-up with orthopedics provided in the event symptoms persist. Patient discharged home in stable condition. Case discussed with ED attending Dr. Naranjo. Return precautions reviewed in depth, the patient is instructed to return to the emergency department with any new, worsening, or concerning symptoms. Patient verbalized understanding. Undiagnosed new problem with uncertain prognosis? @ -None Drug Therapy requiring intensive monitoring for toxicity (Heparin, Nitro, Insulin, Cardizem)? @ -None Were any procedures done? @ -None Diagnosis/symptom? @ -Right arm pain Acute, or Chronic, or Acute on Chronic? @ -Acute Uncomplicated (without systemic symptoms) or Complicated (systemic symptoms)? @ -Uncomplicated Side effects of treatment? @ -None Exacerbation, Progression, or Severe Exacerbation] @ -Not applicable Poses a threat to life or bodily function? @ -No - Radiology Data Radiology results: report reviewed, image reviewed Disposition Clinical Impression: Right arm pain Disposition: HOME SELF-CARE Instructions (If sedation given, give patient instructions): Arm Pain (ED) Additional Instructions: Return to the emergency department with any new, worsening, or concerning symptoms. Start taking the meloxicam once daily to help with your pain. Follow up with orthopedics if symptoms do not improve. Prescriptions: Meloxicam [Mobic] 15 mg PO DAILY PRN #20 tab PRN Reason: Pain Is patient prescribed a controlled substance at d/c from ED?: No Referrals: Elena James MD [Primary Care Provider] - 1-2 days Abdon Quintana DO [Doctor of Osteopathic Medicine] - 1-2 days Time of Disposition: 12:33
--- NOTE | 2024-11-08 11:50 | XR ---
EXAMINATION TYPE: XR hand complete RT DATE OF EXAM: 11/08/2024 11:40 AM INDICATION: Patient age:Female; 84 years old; Reason for study: Pain; PHH. pain COMPARISON: Right forearm radiograph the same date. TECHNIQUE: Frontal, lateral and oblique views of the right hand were obtained. FINDINGS: Osteoarthritic changes of the first carpometacarpal joint and all the DIP joints and to a l melania degree the PIP joints. These demonstrate joint space narrowing with marginal osteophytosis. No dislocation. Flexion deformity of the fourth digit at the PIP joint. No osseous erosions. No soft tis jeanie swelling. No radiopaque foreign body. IMPRESSION: 1. No acute extra or dislocation. 2. Flexor deformity of the fourth digit at the PIP joint. Correlate for trigger finger. 3. Moderate osteoarthritic changes as described above. [facility], , 11/08/2024 11:48 AM
--- NOTE | 2024-11-08 11:52 | XR ---
EXAMINATION TYPE: XR forearm RT DATE OF EXAM: 11/08/2024 11:40 AM INDICATION: Patient age:Female; 84 years old; Reason for study: Right arm pain; PHH. pain COMPARISON: Right hand and humerus radiographs the same day. TECHNIQUE: The right forearm was examined in AP and lateral projections. FINDINGS: No acute osseous pathology, soft tissue swelling or joint dislocations are seen. Negative ulnar variance. IMPRESSION: No evidence of acute fracture. [facility], , 11/08/2024 11:50 AM
--- NOTE | 2024-11-08 11:52 | XR ---
EXAMINATION TYPE: XR humerus RT DATE OF EXAM: 11/08/2024 11:40 AM INDICATION: Patient age:Female; 84 years old; Reason for study: Right arm pain; PHH. pain COMPARISON: Right forearm radiograph the same date. TECHNIQUE: The right humerus was examined in AP and lateral axillary projections. FINDINGS: No evidence of acute osseous pathology, joint dislocation, or soft tissue swelling. Small s oft tissue calcification along the proximal soft tissues. Right AC joint arthropathy. The remaining p ortions of the visualized chest are unremarkable. IMPRESSION: 1. No acute osseous pathology. 2. Mild right AC joint arthropathy [facility], , 11/08/2024 11:49 AM
--- NOTE | 2024-11-08 12:26 | US ---
EXAMINATION TYPE: US venous doppler duplex UE RT DATE OF EXAM: 11/08/2024 COMPARISON: None CLINICAL INDICATION: Female, 84 years old with history of Right arm pain; Right arm pain, no known pr ior DVT, not on blood thinners, no recent trauma TECHNIQUE: Grayscale, color Doppler and spectral Doppler imaging of the upper extremity. SIDE PERFORMED: Right VESSELS IMAGED: IJV Subclavian Vein Axilla Vein Brachial Vein(s) Radial Paired Veins Ulnar Paired Veins Cephalic Vein* Basilic Vein* (*superficial vessels) FINDINGS: Right Arm: Negative for DVT Grayscale, color doppler, spectral doppler imaging performed of the deep veins of the upper extremiti es. IMPRESSION: No evidence for DVT of the right upper extremity. [facility], , 11/08/2024 12:23 PM
[2024-11-08] MEDS: DEXAMETHASONE SOD PHOSPHATE 10 MG/ML 1 ML VIAL IM STA (12:51)
[2024-11-08] MEDS: KETOROLAC 15 MG/ML 1 ML VIAL IM STA (12:52)
[2024-11-08 13:08] VITALS: BP 147/93; PULSE 75; RESP 19; TEMP 97.9
== END 2024-11-08 13:00 | disposition home or self-care (01) ==
LOC: EC 11:01
DX: M79.601 Pain in right arm (principal); M19.90 Unspecified osteoarthritis, unspecified site; Z87.891 Personal history of nicotine dependence; Z88.0 Allergy status to penicillin
CPT/HCPCS: 93005; 73060; 73090; 73130; 93971; 99284; 96372 ×2; J1100; J1885

== ENCOUNTER 2024-11-13 10:36 | Inpatient (IN) | payer MEDICARE ==
--- NOTE | 2024-11-13 10:51 | ED ---
Altered Mental Status HPI - General Chief Complaint: Altered Mental Status Stated Complaint: AMS Time Seen by Provider: 11/13/24 10:38 Source: patient, family, EMS, RN notes reviewed Mode of arrival: EMS - History of Present Illness Initial Comments: This is an 84-year-old female who presents to the emergency department for altered mental status. Patient has a history of dementia and EMS was called due to concern for patient declining. She reportedly left the house when her was in the shower and was found wandering around [place]. She also believes that her is manipulating her medications and trying to hide things from her. She is very frustrated and making threats to kill him. Patient does not believe that she needs to be here and believes that she should be at home with her family. However, she does not believe that her family or children know where she is. She is A&O x 3 but does not seem to understand what happened. [facility]'s department did accompany EMS and the patient to fill out a petition. MD Complaint: altered mental status - Related Data Home Medications Medication Instructions Recorded Confirmed Brimonidine Tartrate [Alphagan P 1 drops BOTH EYES BID 11/03/20 11/13/24 0.2% Ophth Soln] Latanoprost/Pf [Latanoprost 0.005% 1 drop BOTH EYES DAILY 11/03/20 11/13/24 Eye Drop] Omeprazole 20 mg PO DAILY 11/03/20 11/13/24 Calcium Carbonate/Vitamin D3 1 tab PO DAILY 11/13/24 11/13/24 (Unknown Strength) Losartan-Hctz 50-12.5 mg [Hyzaar 1 tab PO DAILY 11/13/24 11/13/24 50-12.5] Rosuvastatin [Crestor] 20 mg PO DAILY 11/13/24 11/13/24 Previous Rx's Medication Instructions Recorded HYDROcodone/APAP 10-325MG [[place] 1 tab PO Q6HR PRN 3 Days #28 tab 01/13/21 10-325] Allergies Allergy/AdvReac Type Severity Reaction Status Date / Time Penicillins Allergy Rash/Hives Verified 11/13/24 10:59 Review of Systems ROS Statement: Those systems with pertinent positive or pertinent negative responses have been documented in the HPI. ROS Other: All systems not noted in ROS Statement are negative. Past Medical History Past Medical History: Dementia, GERD/Reflux, Hyperlipidemia, Hypertension, Osteoarthritis (OA) Additional Past Medical History / Comment(s): diverticulitis, alzhiemer History of Any Multi-Drug Resistant Organisms: None Reported Past Surgical History: Adenoidectomy, Hysterectomy, Tonsillectomy Additional Past Surgical History / Comment(s): colonoscopy Past Anesthesia/Blood Transfusion Reactions: No Reported Reaction Past Psychological History: No Psychological Hx Reported Smoking Status: Former smoker Past Alcohol Use History: None Reported Past Drug Use History: None Reported - Past Family History Mother Family Medical History: No Reported History General Exam Limitations: no limitations General appearance: alert, in no apparent distress Head exam: Present: atraumatic, normocephalic, normal inspection Eye exam: Present: normal appearance, PERRL, EOMI. Absent: scleral icterus, conjunctival injection, periorbital swelling Respiratory exam: Present: normal lung sounds bilaterally. Absent: respiratory distress, wheezes, rales, rhonchi, stridor Cardiovascular Exam: Present: regular rate, normal rhythm Neurological exam: Present: alert, oriented X3, CN II-XII intact Psychiatric exam: Present: normal affect, normal mood Skin exam: Present: warm, dry, intact, normal color. Absent: rash Course Vital Signs 11/13/24 10:50 Temperature 98.1 F Pulse Rate 100 Respiratory 16 Rate Blood Pressure 168/81 O2 Sat by Pulse 95 Oximetry Medical Decision Making - Medical Decision Making This is an 84-year-old female who presents to the emergency department for altered mental status. Was pt. sent in by a medical professional or institution? @ -No Did you speak to anyone other than the patient for history? @ -Her and EMS provided the majority of the history. Did you review nursing and triage notes? @ -Yes, and I agree, it is accurate with regards to the patient's symptoms. Were old charts reviewed? @ -No Differential Diagnosis? @ -Differential Altered Mental Status: Hypoglycemia, DKA, hypercapnia, ETOH, overdose, CO poisoning, trauma, myxedema coma, HTN encephalopathy, infection, encephalitis, psychosis, intercranial hemorrhage, hepatic encephalopathy, meningitis, CVA, this is not meant to be an all-inclusive list EKG interpreted by me (3pts min.)? @ -EKG interpreted by me demonstrating the following: Sinus rhythm. Ventricular rate 93 bpm, KS interval 150 ms, QRS duration 89 ms, QTc 411 ms. X-rays interpreted by me (1pt min.)? @ -Not obtained CT interpreted by me (1pt min.)? @ -CT scan of the brain obtained. My interpretation identifies no evidence of an acute intracranial hemorrhage. U/S interpreted by me (1pt. min.)? @ -Not obtained What testing was considered but not performed? (CT, X-rays, U/S, labs)? Why? @ -None What meds were considered but not given? Why? @ -None Did you discuss the management of the patient with other professionals? @ -EPS and case management, who advised that she is cleared psychiatrically and would do best in a dementia care facility. However, she is not in a mental state to sign herself into a facility and they advised hospital admission until her can obtain legal guardianship in 3 days and sign her into the care facility. Dr. Tariq accepts the patient for admission. Did you reconcile home meds? @ -Yes Was smoking cessation discussed for >3mins.? @ -No Was critical care preformed (if so, how long)? @ -No Were there social determinants of health that impacted care today? How? (Homelessness, low income, unemployed, alcoholism, drug addiction, transportation, low edu. Level, literacy, decrease access to med. care, fci, rehab)? @ -No Was there de-escalation of care discussed even if they declined? (Discuss DNR or withdrawal of care, Hospice)? @ -No What co-morbidities impacted this encounter? (DM, HTN, Smoking, COPD, CAD, Cancer, CVA, Hep., AIDS, mental health diagnosis, sleep apnea, morbid obesity)? @ -Dementia, HTN, HLD Was patient admitted / discharged? @ -Admitted. Lab work unremarkable. Urinalysis has a small elevation in WBCs but is not overtly suggestive of infection. Urine sent for culture. UDS positive for opiates, which she does take at home. CT scan of the brain obtained revealing no acute process. Alcohol level negative and she was cleared for EPS evaluation. EPS evaluated the patient and advised that while she was paranoid, this was suspected to be secondary to the dementia. Because she does not have a mental health history they advised placement in a dementia care unit. A long time was spent with case management and EPS. Family had requested patient be placed at [facility]. However, patient continued to be very emotional and paranoid and they did not feel it would be ethically right to force her to sign the paperwork in her current mental state. Her did apply for emergency guardianship and will have a hearing with the court on 11/16. However, patient was still making threatening statements towards her and is also an elopement risk, making her unsafe for discharge. Case management and EPS advised admission for placement. EPS spoke with psychiatry who advised consulting them and they will discuss medications for the patient. Patient admitted to medicine for progressive dementia with aggression and paranoia. Case discussed with ED attending Dr. Hugo. Undiagnosed new problem with uncertain prognosis? @ -None Drug Therapy requiring intensive monitoring for toxicity (Heparin, Nitro, Insulin, Cardizem)? @ -None Were any procedures done? @ -None Diagnosis/symptom? @ -Dementia, paranoia, aggression Acute, or Chronic, or Acute on Chronic? @ -Chronic Uncomplicated (without systemic symptoms) or Complicated (systemic symptoms)? @ -Complicated Side effects of treatment? @ -None Exacerbation, Progression, or Severe Exacerbation] @ -Progression Poses a threat to life or bodily function? @ -Yes, patient unable to function in her current state - Lab Data Result diagrams: 11/13/24 11:02 11/13/24 11:02 Lab Results 11/13/24 11/13/24 11/13/24 Range/Units 11:02 11:02 11:02 WBC 9.86 (4.50-10.00) 10*3/uL RBC 4.76 (4.10-5.20) 10*6/uL Hgb 14.4 (12.0-15.0) g/dL Hct 42.4 (37.2-46.3) % MCV 89.1 (80.0-97.0) fL MCH 30.3 (27.0-32.0) pg MCHC 34.0 (32.0-37.0) g/dL Plt Count 237 (140-440) 10*3/uL MPV 9.9 (9.5-12.2) fL Immature Gran % (Auto) 0.4 % Neutrophils % 79.5 % Lymphocytes % 12.0 % Monocytes % 7.3 % Eosinophils % 0.3 % Basophils % 0.5 % Immature Gran # 0.04 (0.00-0.04) 10*3/uL Neutrophils # 7.84 H (1.80-7.70) 10*3/uL Lymphocytes # 1.18 (0.90-5.00) 10*3/uL Monocytes # 0.72 (0.20-1.00) 10*3/uL Eosinophils # 0.03 L (0.04-0.35) 10*3/uL Basophils # 0.05 (0.00-0.10) 10*3/uL PT 11.1 (10.0-12.5) sec INR 1.0 (<1.2) APTT 20.2 L (22.0-30.0) sec Sodium 142 (137-145) mmol/L Potassium 4.0 (3.5-5.1) mmol/L Chloride 106 (98-107) mmol/L Carbon Dioxide 23 (22-30) mmol/L Anion Gap 13 mmol/L BUN 25 H (7-17) mg/dL Creatinine 0.89 (0.52-1.04) mg/dL Est GFR (CKD-EPI)AfAm 68 (>60 ml/min/1.73 sqM) Est GFR (CKD-EPI)NonAf 59 (>60 ml/min/1.73 sqM) Glucose 143 H (74-99) mg/dL Calcium 10.0 (8.4-10.2) mg/dL Total Bilirubin 1.2 (0.2-1.3) mg/dL AST 36 (14-36) U/L ALT 27 (4-34) U/L Alkaline Phosphatase 81 (38-126) U/L Total Protein 7.5 (6.3-8.2) g/dL Albumin 4.4 (3.5-5.0) g/dL Urine Color Urine Appearance (Clear) Urine pH (5.0-8.0) Ur Specific [place] (1.001-1.035) Urine Protein (Negative) Urine Glucose (UA) (Negative) Urine Ketones (Negative) Urine Blood (Negative) Urine Nitrite (Negative) Urine Bilirubin (Negative) Urine Urobilinogen (<2.0) mg/dL Ur Leukocyte Esterase (Negative) Urine RBC (0-5) /hpf Urine WBC (0-5) /hpf Ur Squamous Epith Cells (0-4) /hpf Hyaline Casts (0-2) /lpf Urine Mucus (None) /hpf Urine Opiates Screen (NotDetected) Ur Oxycodone Screen (NotDetected) Urine Methadone Screen (NotDetected) Ur Barbiturates Screen (NotDetected) U Tricyclic Antidepress (NotDetected) Ur Phencyclidine Scrn (NotDetected) Ur Amphetamines Screen (NotDetected) U Methamphetamines Scrn (NotDetected) U Benzodiazepines Scrn (NotDetected) Urine Cocaine Screen (NotDetected) U Marijuana (THC) Screen (NotDetected) Serum Alcohol <10 mg/dL 11/13/24 Range/Units 11:19 WBC (4.50-10.00) 10*3/uL RBC (4.10-5.20) 10*6/uL Hgb (12.0-15.0) g/dL Hct (37.2-46.3) % MCV (80.0-97.0) fL MCH (27.0-32.0) pg MCHC (32.0-37.0) g/dL Plt Count (140-440) 10*3/uL MPV (9.5-12.2) fL Immature Gran % (Auto) % Neutrophils % % Lymphocytes % % Monocytes % % Eosinophils % % Basophils % % Immature Gran # (0.00-0.04) 10*3/uL Neutrophils # (1.80-7.70) 10*3/uL Lymphocytes # (0.90-5.00) 10*3/uL Monocytes # (0.20-1.00) 10*3/uL Eosinophils # (0.04-0.35) 10*3/uL Basophils # (0.00-0.10) 10*3/uL PT (10.0-12.5) sec INR (<1.2) APTT (22.0-30.0) sec Sodium (137-145) mmol/L Potassium (3.5-5.1) mmol/L Chloride (98-107) mmol/L Carbon Dioxide (22-30) mmol/L Anion Gap mmol/L BUN (7-17) mg/dL Creatinine (0.52-1.04) mg/dL Est GFR (CKD-EPI)AfAm (>60 ml/min/1.73 sqM) Est GFR (CKD-EPI)NonAf (>60 ml/min/1.73 sqM) Glucose (74-99) mg/dL Calcium (8.4-10.2) mg/dL Total Bilirubin (0.2-1.3) mg/dL AST (14-36) U/L ALT (4-34) U/L Alkaline Phosphatase (38-126) U/L Total Protein (6.3-8.2) g/dL Albumin (3.5-5.0) g/dL Urine Color Yellow Urine Appearance Cloudy H (Clear) Urine pH 6.0 (5.0-8.0) Ur Specific [place] 1.020 (1.001-1.035) Urine Protein Trace H (Negative) Urine Glucose (UA) Negative (Negative) Urine Ketones 1+ H (Negative) Urine Blood Negative (Negative) Urine Nitrite Negative (Negative) Urine Bilirubin Negative (Negative) Urine Urobilinogen 2.0 (<2.0) mg/dL Ur Leukocyte Esterase Moderate H (Negative) Urine RBC 1 (0-5) /hpf Urine WBC 10 H (0-5) /hpf Ur Squamous Epith Cells 2 (0-4) /hpf Hyaline Casts 3 H (0-2) /lpf Urine Mucus Rare H (None) /hpf Urine Opiates Screen Detected H (NotDetected) Ur Oxycodone Screen Not Detected (NotDetected) Urine Methadone Screen Not Detected (NotDetected) Ur Barbiturates Screen Not Detected (NotDetected) U Tricyclic Antidepress Not Detected (NotDetected) Ur Phencyclidine Scrn Not Detected (NotDetected) Ur Amphetamines Screen Not Detected (NotDetected) U Methamphetamines Scrn Not Detected (NotDetected) U Benzodiazepines Scrn Not Detected (NotDetected) Urine Cocaine Screen Not Detected (NotDetected) U Marijuana (THC) Screen Not Detected (NotDetected) Serum Alcohol mg/dL - Radiology Data Radiology results: report reviewed, image reviewed Disposition Clinical Impression: Dementia, Threatening behavior, Paranoia Disposition: ADMITTED IP TO THIS [facility] Referrals: Elena James MD [Primary Care Provider] - 1-2 days Forms: Adult Foster Skilled Nursing List, Assisted Living Facilities, Help In The Home
[2024-11-13 11:37] LABS: Basophils # (A) 0.05 10*3/uL (0.00-0.10); Basophils % (A) 0.5 %; Eosinophils # (A) 0.03 10*3/uL (0.04-0.35); Eosinophils % (A) 0.3 %; HCT 42.4 % (37.2-46.3); HGB 14.4 g/dL (12.0-15.0); Lymphocytes # (A) 1.18 10*3/uL (0.90-5.00); MCH 30.3 pg (27.0-32.0); MCV 89.1 fL (80.0-97.0); Mean Platelet Volume 9.9 fL (9.5-12.2); Monocytes # (A) 0.72 10*3/uL (0.20-1.00); Monocytes % (A) 7.3 %; Neutrophils # (A) 7.84 10*3/uL (1.80-7.70); Neutrophils % (A) 79.5 %; RBC 4.76 10*6/uL (4.10-5.20); RDW 13.8 % (11.5-14.5); WBC 9.86 10*3/uL (4.50-10.00)
[2024-11-13 11:39] LABS: Appearance,Urine Cloudy (Clear); Bilirubin,Urine Negative (Negative); Blood,Urine Negative (Negative); Color,Urine Yellow; Glucose,Urine (UA) Negative (Negative); Hyaline Casts,Urine 3 /lpf (0-2); Ketones,Urine 1+ (Negative); Leukocyte Esterase,Urine Moderate (Negative); Mucus,Urine Rare /hpf; Nitrite,Urine Negative (Negative); Protein,Urine Trace (Negative); RBC,Urine 1 /hpf (0-5); Squamous Epithelial Cell,Urine 2 /hpf (0-4); WBC,Urine 10 /hpf (0-5)
[2024-11-13 11:45] LABS: Amphetamine Screen,Urine Not Detected (NotDetected); Barbiturate Screen,Urine Not Detected (NotDetected); Benzodiazepines Screen,Urine Not Detected (NotDetected); Cocaine Screen,Urine Not Detected (NotDetected); Methadone Screen, Urine Not Detected (NotDetected); Opiate Screen,Urine Detected (NotDetected); Oxycodone Screen, Urine Not Detected (NotDetected); Phencyclidine Screen,Urine Not Detected (NotDetected); Tricyclic Antidepressant,Urine Not Detected (NotDetected); Urn Cannabinoid Scrn Not Detected (NotDetected)
[2024-11-13 11:49] LABS: Prothrombin Time 11.1 sec (10.0-12.5)
[2024-11-13 11:55] LABS: Partial Thromboplastin Time 20.2 sec (22.0-30.0)
[2024-11-13 11:57] LABS: ALT 27 U/L (4-34); African American GFR (CKD) 68 (>60 ml/min/1.73 sqM); Albumin 4.4 g/dL (3.5-5.0); Alcohol <10 mg/dL; Anion Gap 13 mmol/L; Blood Urea Nitrogen 25 mg/dL (7-17); Carbon Dioxide 23 mmol/L (22-30); Chloride 106 mmol/L (98-107); Glucose 143 mg/dL (74-99); Non-African American GFR(CKD) 59 (>60 ml/min/1.73 sqM); Sodium 142 mmol/L (137-145); Total Bilirubin 1.2 mg/dL (0.2-1.3); Total Protein 7.5 g/dL (6.3-8.2)
[2024-11-13 12:02] LABS: AST 36 U/L (14-36); Alkaline Phosphatase 81 U/L (38-126)
--- NOTE | 2024-11-13 12:21 | CT ---
EXAMINATION TYPE: CT brain wo con DATE OF EXAM: 11/13/2024 11:44 AM COMPARISON: 04/02/2017.. CLINICAL INDICATION: Female, 84 years old with history of Altered mental status, Altered mental statu s TECHNIQUE: Brain: Axial CT images of the brain were obtained with coronal and sagittal reformats created and rev iewed. Contrast used: None. Oral contrast used: None. CT DLP: 1097.8 mGycm, Automated exposure control for dose reduction was used. FINDINGS: Brain: Extra-axial spaces: No abnormal extra-axial fluid collections. Ventricular system: No evidence for hydrocephalus, septum cavum pellucidum. Cerebral parenchyma: Cerebral atrophy. No acute intraparenchymal hemorrhage or mass effect. The perez -white junction is well differentiated. Scattered hypoattenuating areas are seen within the white mat ter. Cerebellum: Unremarkable. Mass effect: No evidence of midline shift. Intracranial vasculature: unremarkable Soft tissues: Normal. Calvarium/osseous structures: No depressed skull fracture. Paranasal sinuses and mastoid air cells: Mild scattered paranasal sinus disease. Visualized orbits: Bilateral aphakia IMPRESSION: 1. No acute intracranial process. 2. Nonspecific white matter changes, likely secondary to chronic small vessel ischemic disease. [facility], , 11/13/2024 12:18 PM
[2024-11-13 13:36] LABS: Platelet Count 237 10*3/uL (140-440)
[2024-11-13] MEDS ORDERED: HYDROcodone/APAP 5-325MG 1 EACH TAB PO PRN (18:56)
[2024-11-13] MEDS ORDERED: ONDANSETRON 4 MG/2 ML VIAL IVP PRN (18:56)
[2024-11-13] MEDS ORDERED: ACETAMINOPHEN TAB 325 MG TAB PO PRN (18:56)
[2024-11-13] MEDS ORDERED: NALOXONE 0.4 MG/ML 1 ML VIAL IV PRN (18:56)
[2024-11-13] MEDS ORDERED: HYDROcodone/APAP 10-325MG 1 EACH TAB PO PRN (19:00)
[2024-11-14] MEDS: BRIMONIDINE TARTRATE 0.2% DROPS 5 ML BTL BOTH EYES SCH (00:36)
[2024-11-14] MEDS ORDERED: NON FORMULARY DRUG (Omeprazole [Omeprazole] 20 MG Capsule.Dr) PO SCH (09:00)
[2024-11-14] MEDS: ATORVASTATIN 40 MG TAB PO SCH (11:27)
[2024-11-14] MEDS: LOSARTAN-HCTZ 50-12.5 MG 1 EACH TAB PO SCH (11:27)
[2024-11-14] MEDS: LATANOPROST 0.005% OPHTH DROPS 2.5 ML BTL BOTH EYES SCH (11:27)
[2024-11-14] MEDS: PANTOPRAZOLE 40 MG/10 ML VIAL IV SCH (11:28)
[2024-11-14] MEDS: CALCIUM CARB-VIT D 500 MG-5 MCG TAB PO SCH (11:28)
[2024-11-14 12:19] LABS: Glucose,Whole Blood 126 mg/dL (70-110)
[2024-11-14] MEDS: CIPROFLOXACIN HCL 500 MG TAB PO SCH (13:59)
--- NOTE | 2024-11-14 14:41 | P.CN ---
Psychiatric Consult - . Consult date: 11/14/24 Consult:: 11/14/24 13:44 IDENTIFYING DATA: This patient is a 84-year-old female, she is currently she has 4 kids lives with her . REASON FOR REFERRAL: Psychiatry was consulted for "dementia, aggression, paranoia" HISTORY OF PRESENT ILLNESS: The patient presented to the hospital initially on 11/13 for altered mental status, patient was brought in by EMS. She was also petition by police for apparently found outside wandering the house. Patient apparently was claiming that her may be manipulating her mate medications and appeared to be frustrated initially on admission. Patient was found to have a urinary tract infection being treated by antibiotics, urine drug screen is positive for opiates. Patient was seen at the bedside today agreeable to speak to typewriter assembler, she was a little bit difficult to redirect, very talkative pleasant with typewriter assembler and joking around. She did claims that she has been seeing things including "dogs people birds". She was also talking about her and making hand gestures in reference to him being right beside her however no one else was in the room with us. Patient also claims that there are also mild auditory hallucinations however she is not bothered by them. She was not reporting any paranoia at this time. Claims that her mood and anxiety are fair. She did report on and off sleep, appetite is fair. She knew her name she did not know where she was she believes that she was in "[place]". She also believes that it was June 15. Memory recall was poor, only followed some commands. At this time patient denies any suicidal or homical ideations, intent or plan. Patients admits to using no recreational drug PAST PSYCHIATRIC HISTORY: Patient has a a history of dementia. Patient denies being on any psychiatric medications. Patient denies any previous psychiatric hospitalizations. Patient denies any psychiatric outpatient follow-up. Patient denies any history of suicide attempts in the past. Past Medical History: Dementia, GERD/Reflux, Hyperlipidemia, Hypertension, Osteoarthritis (OA) Additional Past Medical History / Comment(s): diverticulitis, alzhiemer History of Any Multi-Drug Resistant Organisms: None Reported Past Surgical History: Adenoidectomy, Hysterectomy, Tonsillectomy Additional Past Surgical History / Comment(s): colonoscopy Past Anesthesia/Blood Transfusion Reactions: No Reported Reaction Past Psychological History: No Psychological Hx Reported Smoking Status: Former smoker Past Alcohol Use History: None Reported Past Drug Use History: None Reported ALLERGIES: as per EMR. CHEMICAL DEPENDENCY HISTORY: as per HPI. FAMILY PSYCHIATRIC/SUBSTANCE USE HISTORY: Claims that there is a strong familial history of alcohol abuse SOCIAL HISTORY: Patient was born and raised in [place] and also in [place]. She currently lives with her in a house, she is she has 4 kids. She denies any legal history. Claims that she completed high school. MENTAL STATUS EXAM: General Appearance: Patient appears to be mildly overweight, short hair, stated age is alert, pleasant, and attempts to be cooperative. Patient appears to have fair hygiene and grooming wearing hospital gown with fair eye contact. Behavior: Patient is calmly lying in bed without any agitated behavior. Difficult to redirect at times follow some commands. Fairly pleasant Speech: Patient's speech is fluent and nonpressured. Talkative Mood/Affect: Patient reports their mood is "ok", affect is congruent Suicidality/Homicidality: Patient denies having any suicidal or homicidal ideation intent or plan. Perceptions: Patient admits to mainly visual hallucinations, seeing different things including dogs people and birds. Mild auditory hallucinations. Though content/process: There is no evidence of any delusional thought content and thought process is linear. Fairly talkative tangential at times Memory and concentration: AOX3, grossly intact for the purposes of this session. Can spell "WORLD" backwards Judgment and insight: Poor/limited IMPRESSIONS: Delirium, likely secondary to urinary tract infection Major neurocognitive disorder, possibly due to Lewy body dementia versus Parkinson's dementia PLAN: -At this time patient DOES NOT meet criteria for inpatient psychiatric admission. -Patient DOES NOT have decision making capacity at this time and is unable to reason through and communicate/appreciate the risks, benefits and alternatives to treatment. -Delirium precautions recommended with patient including - avoiding use of narcotics and ELECTRONIC PLOTTING SYSTEM OPERATOR sedatives, limit anticholinergic medications when possible, frequent re-orientation, minimize use of restraints, open window shades during the day and close them at night -Would recommend the following medication changes/additions: Will give 1 dose of Seroquel now at 12.5 mg, scheduled 25 mg Seroquel nightly for hallucinations/sleep/mood. Will also order Seroquel twice daily 12.5 mg as needed for acute agitation/psychosis -workers compensation claims analyst to provide patient with outpatient mental health/psychiatry resources for appropriate follow up upon discharge -Communicated plan to patient's nurse -Will continue to follow along if needed -Please contact with any questions. 11/14/24 14:34
[2024-11-14] MEDS: OLANZapine 10 MG VIAL IM PRN (15:41)
[2024-11-14 17:17] LABS: Glucose,Whole Blood 136 mg/dL (70-110)
[2024-11-14] MEDS: QUEtiapine 25 MG TAB PO ONE (18:19)
[2024-11-14] MEDS: QUEtiapine 25 MG TAB PO SCH (19:50)
[2024-11-14] MEDS: QUEtiapine 25 MG TAB PO PRN (22:12)
--- NOTE | 2024-11-15 07:38 | P.HPIM ---
History of Present Illness H&P Date: 11/14/24 Lindsey Guy, is an 84-year-old female patient of Dr. Barclay who presented for concerns of altered mental status changes. Patient has a history of dementia and EMS had brought patient in due to concerns of declining she was reportedly left at her house and was found wandering around [place]. According to ER report patient also was making threats against her . Additional medical history includes dementia GERD, hyperlipidemia, hypertension, osteoarthritis and ex-smoker. Head CT completed showing no acute intracranial process nonspecific white matter changes likely secondary from chronic small vessel ischemic disease. EKG completed showing sinus rhythm with sinus arrhythmia. Lab work completed showing white blood cell 9.86, hemoglobin 14.4, creatinine 0.89, bun 25. Drug screen positive for opioids. UA positive for urinary tract infection. Cipro has been started at this time patient will be admitted psychiatry services have been consulted. Social work services consulted. At this time patient denies chest pain or shortness of breath. Patient denies nausea vomiting or diarrhea. Patient denies any urinary burning or frequency Review of Systems Please refer to HPI otherwise unremarkable Past Medical History Past Medical History: Dementia, GERD/Reflux, Hyperlipidemia, Hypertension, Osteoarthritis (OA) Additional Past Medical History / Comment(s): diverticulitis, alzhiemer/d ementia(advanced) History of Any Multi-Drug Resistant Organisms: None Reported Past Surgical History: Adenoidectomy, Hysterectomy, Tonsillectomy Additional Past Surgical History / Comment(s): colonoscopy Past Anesthesia/Blood Transfusion Reactions: No Reported Reaction Past Psychological History: No Psychological Hx Reported Additional Psychological History / Comment(s): very anxious about this surgery Smoking Status: Former smoker Past Alcohol Use History: None Reported Additional Past Alcohol Use History / Comment(s): quit smoking 20+ years ago, smoked 1-2ppd for 20 yrs. Past Drug Use History: None Reported - Past Family History Mother Family Medical History: No Reported History Medications and Allergies Home Medications Medication Instructions Recorded Confirmed Type Brimonidine Tartrate [Alphagan P 1 drops BOTH EYES BID 11/03/20 11/13/24 History 0.2% Ophth Soln] Latanoprost/Pf [Latanoprost 0.005% 1 drop BOTH EYES DAILY 11/03/20 11/13/24 History Eye Drop] Omeprazole 20 mg PO DAILY 11/03/20 11/13/24 History HYDROcodone/APAP 10-325MG [[place] 1 tab PO Q6HR PRN 3 Days #28 tab 01/13/21 11/13/24 Rx 10-325] Calcium Carbonate/Vitamin D3 1 tab PO DAILY 11/13/24 11/13/24 History (Unknown Strength) Losartan-Hctz 50-12.5 mg [Hyzaar 1 tab PO DAILY 11/13/24 11/13/24 History 50-12.5] Rosuvastatin [Crestor] 20 mg PO DAILY 11/13/24 11/13/24 History Allergies Allergy/AdvReac Type Severity Reaction Status Date / Time Penicillins Allergy Rash/Hives Verified 11/13/24 10:59 Physical Exam Vitals: Vital Signs Temp Pulse Pulse Resp BP BP Pulse Ox 11/14/24 11:40 97.5 F L 58 L 16 187/95 97 11/14/24 07:39 97.7 F 79 16 167/88 98 11/14/24 05:52 84 16 154/90 95 11/14/24 00:39 75 16 163/83 97 11/13/24 21:00 81 16 164/91 97 Intake and Output 11/13/24 11/14/24 11/14/24 22:59 06:59 14:59 Other: Voiding Method Toilet Weight 58.967 kg Head normocephalic Neck supple Lungs clear to auscultation bilaterally no wheezing or crackles Heart regular rate and rhythm S1-S2, no rub or gallop Abdomen is soft nontender nondistended positive bowel sounds no hepatosplenomegaly Extremities no edema Neuro alert and orientated to 3. Patient confused intermittently Results CBC & Chem 7: 11/13/24 11:02 11/13/24 11:02 Labs: Abnormal Lab Results - Last 24 Hours (Table) 11/13/24 11/14/24 Range/Units 11:02 12:09 Neutrophils # 7.84 H (1.80-7.70) 10*3/uL Eosinophils # 0.03 L (0.04-0.35) 10*3/uL POC Glucose (mg/dL) 126 H (70-110) mg/dL Assessment and Plan Assessment: 1. Altered mental status changes 2. Urinary tract infection patient started on Cipro urine culture ordered 3. History of dementia 4. History of essential hypertension 5. History of GERD 6. History of hyperlipidemia 7. History of total hip replacement At this time patient will be admitted Psychiatry services consulted Patient started on Cipro for urinary tract infection Urine culture ordered Repeat labs ordered Social work services consulted Time with Patient: Greater than 30 (Greater than 60% of the total time spent in counseling and coordination of care)
--- NOTE | 2024-11-15 07:40 | P.PN ---
Subjective Progress Note Date: 11/15/24 Lindsey Guy, is an 84-year-old female patient of Dr. Barclay who presented for concerns of altered mental status changes. Patient has a history of dementia and EMS had brought patient in due to concerns of declining she was reportedly left at her house and was found wandering around [place]. According to ER report patient also was making threats against her . Additional medical history includes dementia GERD, hyperlipidemia, hypertension, osteoarthritis and ex-smoker. Head CT completed showing no acute intracranial process nonspecific white matter changes likely secondary from chronic small vessel ischemic disease. EKG completed showing sinus rhythm with sinus arrhythmia. Lab work completed showing white blood cell 9.86, hemoglobin 14.4, creatinine 0.89, bun 25. Drug screen positive for opioids. UA positive for urinary tract infection. Cipro has been started at this time patient will be admitted psychiatry services have been consulted. Social work services consulted. At this time patient denies chest pain or shortness of breath. Patient denies nausea vomiting or diarrhea. Patient denies any urinary burning or frequency On 11/15/2024 patient is currently alert standing in room. emd special education teacher at bedside patient required increased dose of Seroquel per psychiatry services. Patient has been up pacing the room. According to case management records guardianship hearing scheduled for 11/16/2024. Patient denies chest pain or shortness of breath. Patient denies nausea vomiting or diarrhea. Patient denies any urinary burning or frequency Objective - Vital Signs Vital signs: Vital Signs Temp 97.8 F 11/15/24 07:16 Pulse 79 11/15/24 07:16 Resp 17 11/15/24 07:16 BP 167/96 11/15/24 07:16 Pulse Ox 96 11/15/24 07:16 FiO2 Intake & Output 11/14/24 11/15/24 11/15/24 18:59 06:59 18:59 Intake Total 240 Output Total 3 3 Balance -3 237 Weight 58.967 kg Intake: Oral 240 Output: Urine 3 3 Other: Voiding Method Toilet Toilet # Voids 1 - Exam Head normocephalic Neck supple Lungs clear to auscultation bilaterally no wheezing or crackles Heart regular rate and rhythm S1-S2, no rub or gallop Abdomen is soft nontender nondistended positive bowel sounds no hepatosplenomegaly Extremities no edema Neuro alert and orientated to 3. Patient confused intermittently - Labs CBC & Chem 7: 11/13/24 11:02 11/13/24 11:02 Labs: Abnormal Lab Results - Last 24 Hours (Table) 11/14/24 11/14/24 Range/Units 12:09 17:15 POC Glucose (mg/dL) 126 H 136 H (70-110) mg/dL Assessment and Plan Assessment: 1. Altered mental status changes 2. Urinary tract infection patient started on Cipro urine culture ordered 3. History of dementia 4. History of essential hypertension 5. History of GERD 6. History of hyperlipidemia 7. History of total hip replacement At this time patient will be admitted Psychiatry services consulted Patient started on Cipro for urinary tract infection Urine culture ordered Repeat labs ordered Social work services consulted Guardianship hearing scheduled for 11/16/2024
[2024-11-15] MEDS: PANTOPRAZOLE 40 MG TABLET PO SCH (09:14)
[2024-11-16 07:26] VITALS: RESP 16
[2024-11-16 08:00] LABS: Basophils # (A) 0.09 X 10*3/uL (0.00-0.10); Basophils % (A) 1.2 %; Eosinophils # (A) 0.23 X 10*3/uL (0.04-0.35); Eosinophils % (A) 3.1 %; HCT 39.9 % (37.2-46.3); Lymphocytes # (A) 2.33 X 10*3/uL (0.90-5.00); Lymphocytes % (A) 31.8 %; MCH 29.7 pg (27.0-32.0); MCHC 32.6 g/dL (32.0-37.0); MCV 91.3 FL (80.0-97.0); Mean Platelet Volume 9.8 FL (9.5-12.2); Monocytes # (A) 0.87 X 10*3/uL (0.20-1.00); Monocytes % (A) 11.9 %; NRBC Per 100 WBC 0 X 10*3/uL (0.00-0.01); Neutrophils # (A) 3.79 X 10*3/uL (1.80-7.70); Neutrophils % (A) 51.7 %; Platelet Count 247 X 10*3/uL (140-440); RBC 4.37 X 10*6/uL (4.10-5.20); RDW 13.9 % (11.5-14.5); WBC 7.33 X 10*3/uL (4.50-10.00)
--- NOTE | 2024-11-16 08:02 | P.PN ---
Subjective Progress Note Date: 11/16/24 Lindsey Guy, is an 84-year-old female patient of Dr. Barclay who presented for concerns of altered mental status changes. Patient has a history of dementia and EMS had brought patient in due to concerns of declining she was reportedly left at her house and was found wandering around [place]. According to ER report patient also was making threats against her . Additional medical history includes dementia GERD, hyperlipidemia, hypertension, osteoarthritis and ex-smoker. Head CT completed showing no acute intracranial process nonspecific white matter changes likely secondary from chronic small vessel ischemic disease. EKG completed showing sinus rhythm with sinus arrhythmia. Lab work completed showing white blood cell 9.86, hemoglobin 14.4, creatinine 0.89, bun 25. Drug screen positive for opioids. UA positive for urinary tract infection. Cipro has been started at this time patient will be admitted psychiatry services have been consulted. Social work services consulted. At this time patient denies chest pain or shortness of breath. Patient denies nausea vomiting or diarrhea. Patient denies any urinary burning or frequency On 11/15/2024 patient is currently alert standing in room. engraver apprentice decorative at bedside patient required increased dose of Seroquel per psychiatry services. Patient has been up pacing the room. According to case management records guardianship hearing scheduled for 11/16/2024. Patient denies chest pain or shortness of breath. Patient denies nausea vomiting or diarrhea. Patient denies any urinary burning or frequency On 11/16/2024 patient is currently resting in bed it appears patient had a more restful night. Per social work note guardianship hearing today. DC plan to [facility] on 11/19/2024. Patient remains on Cipro for urinary tract infection. Patient denies chest pain or shortness of breath. Patient denies nausea vomiting or diarrhea. Patient denies any urinary burning or frequency Objective - Vital Signs Vital signs: Vital Signs Temp 97.8 F 11/16/24 07:25 Pulse 80 11/16/24 07:25 Resp 16 11/16/24 07:25 BP 121/75 11/16/24 07:25 Pulse Ox 95 11/16/24 07:25 FiO2 Intake & Output 11/15/24 11/16/24 11/16/24 18:59 06:59 18:59 Intake Total 480 540 Balance 480 540 Intake: Oral 480 540 Other: Voiding Method Toilet Toilet # Voids 3 2 - Exam Head normocephalic Neck supple Lungs clear to auscultation bilaterally no wheezing or crackles Heart regular rate and rhythm S1-S2, no rub or gallop Abdomen is soft nontender nondistended positive bowel sounds no hepatosplenomegaly Extremities no edema Neuro alert and orientated to 3. Patient confused intermittently - Labs CBC & Chem 7: 11/16/24 05:50 11/13/24 11:02 Labs: Microbiology - Last 24 Hours (Table) 11/13/24 23:38 Urine Culture - Final Urine,Clean Catch Assessment and Plan Assessment: 1. Altered mental status changes 2. Urinary tract infection patient started on Cipro urine culture ordered 3. History of dementia 4. History of essential hypertension 5. History of GERD 6. History of hyperlipidemia 7. History of total hip replacement At this time patient will be admitted Psychiatry services consulted Patient started on Cipro for urinary tract infection Urine culture ordered Repeat labs ordered Social work services consulted Guardianship hearing scheduled for 11/16/2024
[2024-11-16 08:31] LABS: ALT 31 U/L (8-44); AST 38 U/L (13-35); Albumin 3.9 g/dL (3.8-4.9); Alkaline Phosphatase 77 U/L (41-126); BUN/Creat Ratio 22.73 Ratio (12.00-20.00); Calcium 9.3 mg/dL (8.7-10.3); Chloride 110 mmol/L (96-109); Globulin 2.3 g/dL (1.6-3.3); Glucose 88 mg/dL (70-110); Potassium 3.9 mmol/L (3.5-5.5); Sodium 145 mmol/L (135-145); Total Bilirubin 0.5 mg/dL (0.3-1.2); Total Protein 6.2 g/dL (6.2-8.2)
--- NOTE | 2024-11-16 12:08 | P.DS ---
Providers Date of admission: 11/15/24 09:30 Expected date of discharge: 11/16/24 Attending physician: Zulay Tariq Consults: 11/13/24 19:07 Consult Physician Urgent Consulting Provider: Psychiatry - [facility] Psychiatry Consult Reason/Comments: Dementia, agression, paranoia Do you want consulting provider notified?: Yes Primary care physician: Elena James Hospital Course: Discharge diagnosis 1. Altered mental status changes 2. Urinary tract infection patient started on Cipro urine culture ordered 3. History of dementia 4. History of essential hypertension 5. History of GERD 6. History of hyperlipidemia 7. History of total hip replacement Hospital course Lindsey Guy, is an 84-year-old female patient of Dr. Barclay who presented for concerns of altered mental status changes. Patient has a history of dementia and EMS had brought patient in due to concerns of declining she was reportedly left at her house and was found wandering around [place]. According to ER report patient also was making threats against her . Additional medical history includes dementia GERD, hyperlipidemia, hypertension, osteoarthritis and ex-smoker. Head CT completed showing no acute intracranial process nonspecific white matter changes likely secondary from chronic small vessel ischemic disease. EKG completed showing sinus rhythm with sinus arrhythmia. Lab work completed showing white blood cell 9.86, hemoglobin 14.4, creatinine 0.89, bun 25. Drug screen positive for opioids. UA positive for urinary tract infection. Cipro has been started at this time patient will be admitted psychiatry services have been consulted. Social work services consulted. At this time patient denies chest pain or shortness of breath. Patient denies nausea vomiting or diarrhea. Patient denies any urinary burning or frequency On 11/15/2024 patient is currently alert standing in room. human services case manager at bedside patient required increased dose of Seroquel per psychiatry services. Patient has been up pacing the room. According to case management records guardianship hearing scheduled for 11/16/2024. Patient denies chest pain or shortness of breath. Patient denies nausea vomiting or diarrhea. Patient denies any urinary burning or frequency On 11/16/2024 patient is currently resting in bed it appears patient had a more restful night. Per social work note guardianship hearing today. PR plan to [facility] on 11/19/2024. Patient remains on Cipro for urinary tract infection. Patient denies chest pain or shortness of breath. Patient denies nausea vomiting or diarrhea. Patient denies any urinary burning or frequency per social work patient ok to be d/c to facility Plan - Discharge Summary Discharge Rx Participant: No New Discharge Prescriptions: New Ciprofloxacin HCl [Cipro] 500 mg PO BID 3 Days #6 tab QUEtiapine [SEROquel] 25 mg PO HS 30 Days #30 tab QUEtiapine [SEROquel] 12.5 mg PO BID PRN 30 Days #60 tab PRN Reason: agitation/psychosis Continue Latanoprost/Pf [Latanoprost 0.005% Eye Drop] 1 drop BOTH EYES DAILY Calcium Carbonate/Vitamin D3 (Unknown Strength) 1 tab PO DAILY Rosuvastatin [Crestor] 20 mg PO DAILY Omeprazole 20 mg PO DAILY Brimonidine Tartrate [Alphagan P 0.2% Ophth Soln] 1 drops BOTH EYES BID HYDROcodone/APAP 10-325MG [[place] 10-325] 1 tab PO Q6HR PRN 3 Days #28 tab PRN Reason: Pain Losartan-Hctz 50-12.5 mg [Hyzaar 50-12.5] 1 tab PO DAILY Discharge Medication List Brimonidine Tartrate [Alphagan P 0.2% Ophth Soln] 1 drops BOTH EYES BID 11/03/20 [History] Latanoprost/Pf [Latanoprost 0.005% Eye Drop] 1 drop BOTH EYES DAILY 11/03/20 [History] Omeprazole 20 mg PO DAILY 11/03/20 [History] HYDROcodone/APAP 10-325MG [[place] 10-325] 1 tab PO Q6HR PRN 3 Days #28 tab 01/13/21 [Rx] Calcium Carbonate/Vitamin D3 (Unknown Strength) 1 tab PO DAILY 11/13/24 [History] Losartan-Hctz 50-12.5 mg [Hyzaar 50-12.5] 1 tab PO DAILY 11/13/24 [History] Rosuvastatin [Crestor] 20 mg PO DAILY 11/13/24 [History] Ciprofloxacin HCl [Cipro] 500 mg PO BID 3 Days #6 tab 11/16/24 [Rx] QUEtiapine [SEROquel] 12.5 mg PO BID PRN 30 Days #60 tab 11/16/24 [Rx] QUEtiapine [SEROquel] 25 mg PO HS 30 Days #30 tab 11/16/24 [Rx] Follow up Appointment(s)/Referral(s): Elena James MD [Primary Care Provider] - 1-2 days Discharge/Stand Alone Forms: Adult Foster Alf List, Assisted Living Facilities, Help In The Home Discharge Disposition: OTHER INSTITUTION NOT DEFINED
[2024-11-16 13:23] VITALS: BP 109/60; PULSE 77; TEMP 98.1
[2024-11-16] MEDS: ALPRAZolam 0.5 MG TAB PO ONE (13:30)
--- NOTE | 2024-11-21 12:42 | CDI ---
Documentation Clarification Form Date: 11/21/2024 11:49:56 AM From: Elizabeth Briggs RN, CCDS Email: [email or web address] Admit Date: 11/15/2024 09:30:00 AM Patient Name: Lindsey Guy Visit Number: [id number] Discharge Date: 11/16/2024 02:18:00 PM ATTENTION: The Clinical Documentation Specialists (CDI) and [facility] Coding Staff appreciate your assistance in clarifying documentation. Please respond to the clarification below the line at the bottom and electronically sign. The CDI & [facility] Coding staff will review the response and follow-up if needed. Please note: Queries are made part of the Legal Health Record. If you have any questions, please contact the author of this message via ITS. Doctor Zulay Tariq Your patient had the documented symptom of Altered Mental Status. Additional clarification regarding the etiology/cause of this symptom is requested. History/Risk Factors: Dementia and HTN. Presents with AMS after she was found by police wandering around [place]. Admitted for placement reasons and UTI. Clinical Indicators: 11/13 ED: "Patient admitted to medicine for progressive dementia with aggression and paranoia." H&P: "UA positive for urinary tract infection. Altered mental status changes. Urinary tract infection, urine culture ordered. History of dementia. Psychiatry services consulted. Patient started on Cipro for urinary tract infection." 11/14 Psychiatry: "Delirium, likely secondary to urinary tract infection. Major neurocognitive disorder, possibly due to Lewy body dementia versus Parkinson's dementia." 11/13 UA + 11/13 CT: chronic small vessel ischemic disease. Treatment: 1:1 Sitter; Xanax 0.5mg po x1 on 11/16; Cipro 500mg po BID 11/14-11/16; Zyprexa 2.5mg IM Q6H prn agitation 11/14-11/15; Seroquel 12.5mg po BID 11/14-11/15; Seroquel 25mg po HS 11/14-11/15 Please clarify the etiology of the symptom of Altered Mental Status: [ xxx ] Metabolic Encephalopathy due to UTI [ ] Delirium due to UTI [ ] Progressing Lewy Body Dementia [ ] Progressing Parkinson's Dementia [ ] Other condition (please specify) [ ] Unable to determine MTDD
== END 2024-11-16 14:18 | DRG 689 ==
LOC: EC 10:36 → 4SSUR 20:49 → 5NMEDONC 21:17 → OBSVTOIN 11-15 09:30
PROVIDERS: ADMIT Internal Medicine; ATTEND Internal Medicine
DX: N39.0 Urinary tract infection, site not specified (principal); G93.41 Metabolic encephalopathy; F03.92 Unspecified dementia, unspecified severity, with psychotic disturbance; F05 Delirium due to known physiological condition; I10 Essential (primary) hypertension; F03.94 Unspecified dementia, unspecified severity, with anxiety; K21.9 Gastro-esophageal reflux disease without esophagitis; E78.5 Hyperlipidemia, unspecified; Z79.899 Other long term (current) drug therapy; Z87.891 Personal history of nicotine dependence; Z90.710 Acquired absence of both cervix and uterus; Z91.83 Wandering in diseases classified elsewhere; Z96.649 Presence of unspecified artificial hip joint; Z88.0 Allergy status to penicillin
CPT/HCPCS: 36415; 70450; 80053; 80306; 80320; 81001; 85025; 85610; 85730; 87086; 93005; 99285